=== PATIENT | male | born 1965 | race Caucasian/White ===

== ENCOUNTER 2018-04-16 16:46 | Emergency (ER) | payer BC ==
[2018-04-16 17:07] VITALS: BP 156/101
[2018-04-16] MEDS ORDERED: HYDROmorphone 1 MG/ML Syringe IVPUSH STA (17:58)
[2018-04-16] MEDS ORDERED: Ondansetron 4 MG/2 ML SDV IVPUSH ONE (17:58)
--- NOTE | 2018-04-16 18:11 | EDM.PDOC ---
ED HPI GENERAL MEDICAL PROBLEM - General Chief Complaint: Abdominal Pain Stated Complaint: LOWER ABDOMINAL PAIN Time Seen by Provider: 04/16/18 17:16 Source of Information: Reports: Patient, RN Notes Reviewed History Limitations: Reports: No Limitations - History of Present Illness INITIAL COMMENTS - FREE TEXT/NARRATIVE: Patient is a 53 year old male who presents to the ED for the evaluation of sudden onset lower abdominal pain. He states that this started suddenly around 2 hours ago. This located in his lower abdomen, bilaterally. He notes this to feel as if "it is a big gas bubble that won't go away". He states that he has had 4 episodes of diarrhea today, with the last one just prior to arrival, and it looked like coffee grounds with some blood in it. He denies any previous history of intestinal issues like IBS or diverticulosis. He does note that he is on prilosec for GERD, and is supposed to be evaluated for enlarged prostate by urology tomorrow, he also says that he does have hemorrhoids. He denies eating any red-colored foods that may have caused a red color to his stools. He rates his pain at a 9/10. His PCP is Dr. Morataya. Lower Abdominal Pain Score (Numeric/FACES): 9 - Related Data Allergies Allergy/AdvReac Type Severity Reaction Status Date / Time No Known Allergies Allergy Verified 04/16/18 17:07 Home Meds: Home Meds Desvenlafaxine [Pristiq] 1 tab PO DAILY 01/12/16 [History] Valsartan/Hydrochlorothiazide [Valsartan-Hctz 160-12.5 mg Tab] 1 tab PO DAILY [History] Aspirin 325 mg PO BID #60 tablet 01/14/16 [Rx] Ranitidine HCl [Zantac 75] 75 mg PO DAILY 02/13/16 [History] Clindamycin Hcl [IJP: Clindamycin] 450 mg PO .EVERY 8 HOURS #90 cap 02/14/16 [Rx ] Amoxicillin/Potassium Clav [Augmentin 875-125 Tablet] 1 each PO BID #13 tablet 04/16/18 [Rx] Hydrocodone/Acetaminophen [Hermosa 10-325 Tablet] 1 each PO Q6HR PRN #20 tablet [Rx] Past Medical History HEENT History: Reports: Sinusitis, Other (See Below) Other HEENT History: has hearing aids and glasses (doesn't wear) Cardiovascular History: Reports: Hypertension Respiratory History: Reports: Asthma Other Respiratory History: Severe Snoring Gastrointestinal History: Reports: GERD Genitourinary History: Reports: Prostate Disorder Musculoskeletal History: Reports: Arthritis, Back Pain, Chronic, Osteoarthritis , RA, Other (See Below) Other Musculoskeletal History: fracture hand - chronic neck pain Neurological History: Reports: None Psychiatric History: Reports: Anxiety Endocrine/Metabolic History: Reports: None - Past Surgical History HEENT Surgical History: Reports: Other (See Below) Musculoskeletal Surgical History: Reports: Shoulder Replacement, Shoulder Surgery, Other (See Below) Other Musculoskeletal Surgeries/Procedures:: 7 shoulder surgeries, ankle surgery with pins placed Social & Family History - Family History Family Medical History: Noncontributory - Tobacco Use Smoking Status *Q: Current Every Day Smoker Years of Tobacco use: 40 Packs/Tins Daily: 0.5 - Caffeine Use Caffeine Use: Reports: Coffee - Recreational Drug Use Recreational Drug Use: No ED ROS GENERAL - Review of Systems Review Of Systems: See Below Constitutional: Denies: Fever, Chills HEENT: Reports: No Symptoms Respiratory: Reports: No Symptoms Cardiovascular: Reports: No Symptoms Endocrine: Reports: No Symptoms GI/Abdominal: Reports: Abdominal Pain (lower abdominal pain), Diarrhea. Denies : Nausea, Vomiting Musculoskeletal: Reports: No Symptoms Skin: Reports: No Symptoms Neurological: Reports: No Symptoms Psychiatric: Reports: No Symptoms Hematologic/Lymphatic: Reports: No Symptoms Immunologic: Reports: No Symptoms ED EXAM, GI/ABD - Physical Exam Exam: See Below Exam Limited By: No Limitations General Appearance: Alert, WD/WN, No Apparent Distress Eyes: Bilateral: Normal Appearance Ears: Normal External Exam, Normal Canal, Hearing Grossly Normal, Normal TMs Nose: Normal Inspection Throat/Mouth: Normal Inspection, Normal Oropharynx, No Airway Compromise Head: Atraumatic, Normocephalic Neck: Normal Inspection, Supple, Non-Tender, Full Range of Motion Respiratory/Chest: No Respiratory Distress, Lungs Clear, Normal Breath Sounds, No Accessory Muscle Use, Chest Non-Tender Cardiovascular: Normal Peripheral Pulses, Regular Rate, Rhythm, No Edema, No Murmur GI/Abdominal Exam: Normal Bowel Sounds, Soft, No Distention, No Mass, Tender ( RLQ and LLQ). No: Guarding, Rigid, Rebound Back Exam: Normal Inspection, Full Range of Motion Extremities: Normal Inspection, Normal Capillary Refill Neurological: Alert, Oriented, Normal Cognition, No Motor/Sensory Deficits Psychiatric: Normal Affect, Normal Mood Skin Exam: Warm, Dry, Intact, Normal Color, No Rash Course - Vital Signs Last Recorded V/S: Last Vital Signs Temp 98.3 F 04/16/18 17:04 Pulse 68 04/16/18 17:04 Resp 18 04/16/18 17:04 BP 156/101 H 04/16/18 17:04 Pulse Ox 99 04/16/18 17:04 - Orders/Labs/Meds Orders: Active Orders 24 hr Category Date Time Status Abdomen Pelvis w Cont [CT] Stat Exams 04/16/18 17:58 Ordered Sodium Chloride 0.9% [Normal Saline] 1,000 ml Med 04/16/18 18:00 Ordered IV ASDIRECTED Medication Orders Sodium Chloride (Normal Saline) 1,000 mls @ 999 mls/hr IV ASDIRECTED KEVIN Last Admin: 04/16/18 18:16 Dose: 999 mls/hr Labs: Laboratory Tests 04/16/18 04/16/18 04/16/18 Range/Units 18:10 18:10 19:35 WBC 12.69 H (4.23-9.07) K/mm3 RBC 4.68 (4.63-6.08) M/mm3 Hgb 15.1 (13.7-17.5) gm/L Hct 43.2 (40.1-51.0) % MCV 92.3 H (79.0-92.2) fl MCH 32.3 H (25.7-32.2) pg MCHC 35.0 (32.2-35.5) g/dl RDW Std Deviation 42.4 (35.1-43.9) fL Plt Count 312 (163-337) K/mm3 MPV 10.3 (9.4-12.3) fl Neutrophils % (Manual) 76 H (40-60) % Band Neutrophils % 0 (0-10) % Lymphocytes % (Manual) 18 L (20-40) % Atypical Lymphs % 0 % Monocytes % (Manual) 3 (2-10) % Eosinophils % (Manual) 3 (0.8-7.0) % Basophils % (Manual) 0 L (0.2-1.2) Platelet Estimate Adequate RBC Morph Comment Normal Sodium 141 (136-145) mEq/L Potassium 4.1 (3.5-5.1) mEq/L Chloride 106 (98-107) mEq/L Carbon Dioxide 24 (21-32) mEq/L Anion Gap 15.1 H (5-15) BUN 13 (7-18) mg/dL Creatinine 0.9 (0.7-1.3) mg/dL Est Cr Clr Drug Dosing 98.01 mL/min Estimated GFR (MDRD) > 60 (>60) mL/min BUN/Creatinine Ratio 14.4 (14-18) Glucose 104 (74-106) mg/dL Calcium 8.9 (8.5-10.1) mg/dL Total Bilirubin 0.3 (0.2-1.0) mg/dL AST 21 (15-37) U/L ALT 40 (16-63) U/L Alkaline Phosphatase 109 (46-116) U/L Total Protein 7.0 (6.4-8.2) g/dl Albumin 3.7 (3.4-5.0) g/dl Globulin 3.3 gm/dL Albumin/Globulin Ratio 1.1 (1-2) Urine Color Yellow (Yellow) Urine Appearance Clear (Clear) Urine pH 6.0 (5.0-8.0) Ur Specific [place] 1.025 (1.005-1.030) Urine Protein Negative (Negative) Urine Glucose (UA) Negative (Negative) Urine Ketones Negative (Negative) Urine Occult Blood Negative (Negative) Urine Nitrite Negative (Negative) Urine Bilirubin Negative (Negative) Urine Urobilinogen 0.2 (0.2-1.0) Ur Leukocyte Esterase Negative (Negative) Urine RBC 0-5 (0-5) /hpf Urine WBC 0-5 (0-5) /hpf Ur Epithelial Cells Not seen (0-5) /hpf Urine Bacteria Few (FEW) /hpf Urine Mucus Moderate H (FEW) /hpf Meds: Medications Generic Name Dose Route Start Last Admin Trade Name Freq PRN Reason Stop Dose Admin Sodium Chloride 1,000 mls @ 999 mls/hr 04/16/18 18:00 04/16/18 20:34 Normal Saline IV 999 mls/hr ASDIRECTED KEVIN Administration Discontinued Medications Generic Name Dose Route Start Last Admin Trade Name Freq PRN Reason Stop Dose Admin Amoxicillin/Clavulanate Potassium 1 tab 01/08/19 20:30 04/16/18 20:38 Augmentin 875 Mg/125 Mg PO 04/16/18 20:31 1 tab ONETIME ONE Administration Diatrizoate Meglum/Diatrizoate Sod 60 ml 04/16/18 18:24 04/16/18 20:03 Gastrografin 37% PO 04/16/18 18:25 60 ml ONETIME ONE Administration Hydromorphone HCl 0.5 mg 04/16/18 17:58 04/16/18 18:18 Dilaudid IVPUSH 04/16/18 17:59 0.5 mg ONETIME STA Administration Hydromorphone HCl Confirm 04/16/18 20:23 04/16/18 20:28 Dilaudid Administered 04/16/18 20:24 Not Given Dose 1 mg .ROUTE .STK-MED ONE Hydromorphone HCl 0.5 mg 04/16/18 20:27 04/16/18 20:28 Dilaudid IVPUSH 04/16/18 20:28 0.5 mg ONETIME STA Administration Hydromorphone HCl 0.5 mg 04/16/18 20:29 04/16/18 20:39 Dilaudid IVPUSH 04/16/18 20:30 Not Given ONETIME ONE Iopamidol 100 ml 04/16/18 18:25 04/16/18 20:02 Isovue-300 (61%) IVPUSH 04/16/18 18:26 100 ml ONETIME ONE Administration Ondansetron HCl 4 mg 04/16/18 17:58 04/16/18 18:17 Zofran IVPUSH 04/16/18 17:59 4 mg ONETIME ONE Administration - Radiology Interpretation Free Text/Narrative:: CT abdomen and pelvis Technique: Multiple axial sections were obtained from above the dome of the diaphragm inferiorly through the pubic symphysis. Intravenous and oral contrast was utilized. Delayed images were obtained through the bladder. Findings: Small portion of the visualized lung bases shows nothing acute. Liver shows mild fatty infiltration. Slight area of increased density noted within the right lobe extending close to the gallbladder fossa most likely due to focal fatty sparing. Liver is otherwise unremarkable in appearance. Gallbladder contains no calcified gallstones. Spleen appears without abnormality. Adrenal glands show no nodule. Pancreas is within normal limits. Aorta shows no aneurysm with mild atherosclerotic calcification. Appendix is seen which is normal in size. No retroperitoneal adenopathy is seen. No mesenteric abnormalities are seen. Diverticuli are seen mostly within the sigmoid colon with mild muscular prominence being seen within the sigmoid colon. There is a small area of focal increased density adjacent to a diverticulum within the fat of the pelvis presumably due to early diverticulitis. No additional pelvic abnormality is seen. No free fluid is identified. No bowel abnormality is appreciated. Impression: 1. Slight inflammatory change adjacent to a diverticuli within the sigmoid colon which is felt compatible with early diverticulitis. 2. Fatty infiltration within the liver with focal area fatty sparing as noted above. 3. No additional abnormality is appreciated on CT study of the abdomen and pelvis. - Re-Assessments/Exams Free Text/Narrative Re-Assessment/Exam: 04/16/18 18:00 Pt presents to ED for the evaluation of sudden onset lower abdominal pain. Abdomen pelvis CT w contrast, CBC, CMP, UA, 0.5mg iv dilaudid, 4mg iv zofran and an IV fluid bolus has been ordered for initial management. 04/16/18 20:59 Labs are back and his white count is slightly elevated and CT demonstrates early diverticulitis. Results were discussed at bedside, will be given another dose of 0.5mg dilaudid for pain relief, and a dose of augmentin in ED. He will be provided with norco 10-325 for pain relief and augmentin script for home use. Departure - Departure Time of Disposition: 21:02 Disposition: Home, Self-Care 01 Condition: Fair Clinical Impression: Diverticulitis - Discharge Information *PRESCRIPTION DRUG MONITORING PROGRAM REVIEWED*: No *COPY OF PRESCRIPTION DRUG MONITORING REPORT IN PATIENT MARE: No Prescriptions: Hydrocodone/Acetaminophen [Hermosa 10-325 Tablet] 1 each PO Q6HR PRN #20 tablet PRN Reason: Pain Amoxicillin/Potassium Clav [Augmentin 875-125 Tablet] 1 each PO BID #13 tablet Instructions: Diverticulitis, [id number] Referrals: Cameron Pascual MD [Primary Care Provider] - Forms: ED Department Discharge Additional Instructions: You have been evaluated in the ED for your lower abdominal pain. Your CT demonstrated that you have diverticulitis. You have been provided with a script for pain meds and antibiotics. Please take these as directed. Please start taking a probiotic to help prevent diarrhea from antibiotic prescribed. Please return to ED if your symptoms change or worsen. - My Orders Last 24 Hours: My Active Orders 04/16/18 17:58 Abdomen Pelvis w Cont [CT] Stat 04/16/18 18:00 Sodium Chloride 0.9% [Normal Saline] 1,000 ml IV ASDIRECTED - Assessment/Plan Last 24 Hours: My Active Orders 04/16/18 17:58 Abdomen Pelvis w Cont [CT] Stat 04/16/18 18:00 Sodium Chloride 0.9% [Normal Saline] 1,000 ml IV ASDIRECTED
[2018-04-16] MEDS: Sodium Chloride 0.9% 1,000 ML IV SCH ×2 (18:16→20:34)
[2018-04-16] MEDS ORDERED: Diatrizoate Meglumine/Diatrizoate Sodium 37% 120 ML Bottle PO ONE (18:24)
[2018-04-16] MEDS ORDERED: Iopamidol 612 MG/ML 100 ML Bottle IVPUSH ONE (18:25)
[2018-04-16] MEDS ORDERED: HYDROmorphone 1 MG/ML Syringe ONE (20:23)
[2018-04-16] MEDS ORDERED: HYDROmorphone 0.5 MG/0.5 ML Syringe IVPUSH STA (20:27)
[2018-04-16] MEDS ORDERED: HYDROmorphone 1 MG/ML Syringe IVPUSH ONE (20:29)
[2018-04-16] MEDS ORDERED: Amoxicillin/Clavulanate K 875-125 MG Tab PO ONE (20:30)
--- NOTE | 2018-04-16 22:09 | CT ---
CT abdomen and pelvis Technique: Multiple axial sections were obtained from above the dome of the diaphragm inferiorly through the pubic symphysis. Intravenous and oral contrast was utilized. Delayed images were obtained through the bladder. Findings: Small portion of the visualized lung bases shows nothing acute. Liver shows mild fatty infiltration. Slight area of increased density noted within the right lobe extending close to the gallbladder fossa most likely due to focal fatty sparing. Liver is otherwise unremarkable in appearance. Gallbladder contains no calcified gallstones. Spleen appears without abnormality. Adrenal glands show no nodule. Pancreas is within normal limits. Aorta shows no aneurysm with mild atherosclerotic calcification. Appendix is seen which is normal in size. No retroperitoneal adenopathy is seen. No mesenteric abnormalities are seen. Diverticuli are seen mostly within the sigmoid colon with mild muscular prominence being seen within the sigmoid colon. There is a small area of focal increased density adjacent to a diverticulum within the fat of the pelvis presumably due to early diverticulitis. No additional pelvic abnormality is seen. No free fluid is identified. No bowel abnormality is appreciated. Impression: 1. Slight inflammatory change adjacent to a diverticuli within the sigmoid colon which is felt compatible with early diverticulitis. 2. Fatty infiltration within the liver with focal area fatty sparing as noted above. 3. No additional abnormality is appreciated on CT study of the abdomen and pelvis. Diagnostic code #3
== END 2018-04-16 21:48 | disposition home or self-care (01) ==
LOC: JD.ED 16:46
DX: K57.32 Diverticulitis of large intestine without perforation or abscess without bleeding (principal); F17.210 Nicotine dependence, cigarettes, uncomplicated; I10 Essential (primary) hypertension; Z79.899 Other long term (current) drug therapy
CPT/HCPCS: 36415; 74177; 80053; 81001; 85007; 85027; 96361; 96374; 96375; 96376; 99284; A9270; J1170; J2405; J7040; Q9963; Q9967

== ENCOUNTER 2018-08-05 17:47 | Inpatient (IN) | payer BC ==
[2018-08-05] MEDS ORDERED: Sodium Chloride 0.9% 1,000 ML IV ONE (18:33)
[2018-08-05] MEDS ORDERED: Ondansetron 4 MG/2 ML SDV IVPUSH ONE (18:34)
[2018-08-05] MEDS ORDERED: HYDROmorphone 1 MG/ML Syringe IVPUSH ONE (18:34)
[2018-08-05] MEDS ORDERED: cefTRIAXone 2 GM in Sodium Chloride 0.9% 100 ML IV ONE (18:40)
[2018-08-05] MEDS ORDERED: metroNIDAZOLE/Normal Saline 500 MG in Premix Bag 1 BAG IV SCH (18:45)
[2018-08-05] MEDS ORDERED: cefTRIAXone 2 GM Vial IVPUSH SCH (18:45)
--- NOTE | 2018-08-05 19:07 | EDM.PDOC ---
ED HPI GENERAL MEDICAL PROBLEM - General Chief Complaint: Abdominal Pain Stated Complaint: SENT BY [facility] Time Seen by Provider: 08/05/18 18:00 Source of Information: Reports: Patient, Old Records, Provider History Limitations: Reports: No Limitations - History of Present Illness INITIAL COMMENTS - FREE TEXT/NARRATIVE: 53 yo M h/o HTN, GERD, BPH, Depression, Asthma sent by [facility] d/t Diverticulitis w/ abscess found on abdominal CT. Report was called over, reported increased WBC 15.1 and CRP 34.[address] CT results, still awaiting records. Pt c/o abdominal pain started about 2 weeks ago and has been getting worse with associated nausea. He describes the pain as severe cramping in the lower abdomen and he states it "feels full". He has been unable to have a BM for 6 days, has not eaten today (last meal was last night, only ate part of it). This is his third episode of diverticulitis within the last year (first episode 1 year ago, 2nd episode 4 months ago). He is a 1/2ppd smoker x 34 years. PCP is Natasha Grey APRN-MANSI. He is a DNR/DNI. Bilateral Lower Abdominal Pain Score (Numeric/FACES): 8 - Related Data Allergies Allergy/AdvReac Type Severity Reaction Status Date / Time [id number]-Gls Reductase Allergy Disorientat Verified 08/05/18 17:54 Inhibitor ion Home Meds: Home Meds Desvenlafaxine [Pristiq] 50 mg PO DAILY 01/12/16 [History] Valsartan/Hydrochlorothiazide [Valsartan-Hctz 160-12.5 mg Tab] 12.5 - 40 mg PO DAILY 01/12/16 [History] Albuterol [Ventolin HFA] 1 puff INH Q4H PRN 08/05/18 [History] Clindamycin Hcl [IJP: Clindamycin] 600 mg PO .EVERY 8 HOURS 08/05/18 [History] Desvenlafaxine Succinate [Pristiq] 50 mg PO DAILY 08/05/18 [History] Ezetimibe [Zetia] 10 mg PO DAILY 08/05/18 [History] Omeprazole Magnesium [Prilosec Otc] 10 mg PO DAILY 08/05/18 [History] Tamsulosin [Flomax] 0.4 mg PO DAILY 08/05/18 [History] Past Medical History HEENT History: Reports: Sinusitis, Other (See Below) Other HEENT History: has hearing aids and glasses (doesn't wear) Cardiovascular History: Reports: Hypertension Respiratory History: Reports: Asthma Other Respiratory History: Severe Snoring Gastrointestinal History: Reports: GERD Genitourinary History: Reports: Prostate Disorder Musculoskeletal History: Reports: Arthritis, Back Pain, Chronic, Osteoarthritis , RA, Other (See Below) Other Musculoskeletal History: fracture hand - chronic neck pain Neurological History: Reports: None Psychiatric History: Reports: Anxiety Endocrine/Metabolic History: Reports: None - Past Surgical History HEENT Surgical History: Reports: Other (See Below) Musculoskeletal Surgical History: Reports: Shoulder Replacement, Shoulder Surgery, Other (See Below) Other Musculoskeletal Surgeries/Procedures:: 7 shoulder surgeries, ankle surgery with pins placed Social & Family History - Family History Family Medical History: Noncontributory - Tobacco Use Smoking Status *Q: Current Every Day Smoker Years of Tobacco use: 38 Packs/Tins Daily: 0.5 - Caffeine Use Caffeine Use: Reports: Coffee - Recreational Drug Use Recreational Drug Use: No ED ROS GENERAL - Review of Systems Review Of Systems: See Below Constitutional: Reports: No Symptoms. Denies: Fever, Chills, Decreased Appetite HEENT: Reports: No Symptoms Respiratory: Reports: No Symptoms Cardiovascular: Reports: No Symptoms Endocrine: Reports: No Symptoms GI/Abdominal: Reports: Abdominal Pain (lower quadrants), Constipation (hasn't had BM in 6 days), Nausea. Denies: Diarrhea, Vomiting : Reports: No Symptoms Musculoskeletal: Reports: No Symptoms Skin: Reports: No Symptoms Neurological: Reports: No Symptoms Psychiatric: Reports: No Symptoms ED EXAM, GI/ABD - Physical Exam Exam: See Below Exam Limited By: No Limitations General Appearance: Alert, WD/WN, Mild Distress Eyes: Bilateral: Normal Appearance, EOMI Ears: Normal External Exam, Hearing Grossly Normal Nose: Normal Inspection, Normal Mucosa, No Blood Respiratory/Chest: No Respiratory Distress, Lungs Clear, Normal Breath Sounds, No Accessory Muscle Use, Chest Non-Tender Cardiovascular: Normal Peripheral Pulses, Regular Rate, Rhythm, No Edema, No Gallop, No JVD, No Murmur, No Rub GI/Abdominal Exam: Soft, No Organomegaly, No Abnormal Bruit, No Mass, Pelvis Stable, Distended (mild), Tender (lower quadrants), Abnormal Bowel Sounds ( hyperactive) Neurological: Alert, Oriented, CN II-XII Intact, Normal Cognition, Normal Gait, Normal Reflexes, No Motor/Sensory Deficits Psychiatric: Normal Affect, Normal Mood Skin Exam: Warm, Dry, Intact, Normal Color, No Rash Course - Vital Signs Last Recorded V/S: Last Vital Signs Temp 96.7 F 08/05/18 17:55 Pulse 83 08/05/18 17:55 Resp 16 08/05/18 17:55 BP 152/99 H 08/05/18 17:55 Pulse Ox 100 08/05/18 17:55 - Orders/Labs/Meds Orders: Active Orders 24 hr Category Date Time Status CULTURE BLOOD [BC] Stat Lab 08/05/18 19:39 Received CULTURE BLOOD [BC] Stat Lab 08/05/18 19:45 Received metroNIDAZOLE/Normal Saline [Flagyl 500 MG in NS 100 ML Med 08/05/18 18:45 Active ] 500 mg Premix Bag 1 bag IV Q8H Blood Culture x2 Reflex Set [OM.PC] Stat Oth 08/05/18 19:22 Ordered Medication Orders Metronidazole 500 mg/ Premix 100 mls @ 100 mls/hr IV Q8H KEVIN Last Admin: 08/05/18 19:37 Dose: 100 mls/hr Labs: Laboratory Tests 08/05/18 Range/Units 19:39 Lactic Acid 0.8 (0.4-2.0) mmol/L Meds: Medications Generic Name Dose Route Start Last Admin Trade Name Freq PRN Reason Stop Dose Admin Metronidazole 500 mg/ Premix 100 mls @ 100 mls/hr 08/05/18 18:45 08/05/18 19: 37 IV 100 mls/hr Q8H KEVIN Administration Discontinued Medications Generic Name Dose Route Start Last Admin Trade Name Freq PRN Reason Stop Dose Admin Hydromorphone HCl 0.5 mg 08/05/18 18:34 08/05/18 19:01 Dilaudid IVPUSH 08/05/18 18:35 0.5 mg ONETIME ONE Administration Hydromorphone HCl 0.5 mg 08/05/18 21:30 08/05/18 21:34 Dilaudid IVPUSH 08/05/18 21:31 0.5 mg ONETIME ONE Administration Sodium Chloride 1,000 mls @ 999 mls/hr 08/05/18 18:33 08/05/18 19:01 Normal Saline IV 08/05/18 19:33 999 mls/hr ONETIME ONE Administration Ceftriaxone Sodium 2 gm/ 100 mls @ 200 mls/hr 08/05/18 18:40 08/05/18 19:01 Sodium Chloride IV 08/05/18 19:09 200 mls/hr ONETIME ONE Administration Ondansetron HCl 4 mg 08/05/18 18:34 08/05/18 19:01 Zofran IVPUSH 08/05/18 18:35 4 mg ONETIME ONE Administration - Re-Assessments/Exams Free Text/Narrative Re-Assessment/Exam: 08/05/18 18:35 Ordered Metronidazole 500mg, Rocephin 2g Zofran 4mg, Dilaudid 0.5mg 1L bolus IV NS Still awaiting labs and CT report from [facility]. 08/05/18 19:00 Discussed case with on-call surgeon Dr. Aguayo. He reviewed the CT and consulted in the ED. He states that the abscess is not large enough to warrant surgery, but he should be admitted for IV antibiotic treatment as he is symptomatic, has elevated WBC (15.1) and there is a presence of an abscess. He states that he may need a sigmoid colectomy if he has had this over 2 times with being over 50 years old- this is is 3rd episode in the past year. Dr. Aguayo states he cannot perform that surgery here. [place] labs are back: CBC shows WBC 15.1, Seg neut absolute 11.3, Neut 74.9%, Lymph 17.6%, [place] 6.9%-- > infection with left shift CMP shows Glu 109 CRP 34.6 U/A negative for UTI Will add Lactic Acid and Blood Cultures CT report from [place]: Acute sigmoid diverticulitis w/ peridiverticular abscess superiorly measuring [id number]. 08/05/18 19:[address] Will discuss [address] Coffman to see if he'd like to admit for IV antibiotic treatment and have him follow up for sigmoid colectomy outpt. At this time, with this being his third episode in the past year, Dr. Coffman is not comfortable taking this patient and would like him to go where the surgery can be done. He is fine with being back up in case he can't get transferred. Will call [facility] next. 08/05/18 19:59 Called [facility]. They are unsure if they have any available beds. Will call me back. 08/05/18 20:05 [facility] called back. They are full. Will try [facility]. 08/05/18 20:18 [facility] busy, will call me back. 08/05/18 20:22 [facility] called me back. Discussed case with general surgeon Dr. Lorena Gooden. She has accepted the patient for inpatient treatment. She states he will likely need an IR drain vs. surgery. 08/05/18 20:43 Dr. Gooden has called back after reviewing the CT. She does not feel he needs surgical intervention and would like to cancel the admission/transfer as she will be giving the same treatment as he would get here. 08/05/18 20:47 Dr. Coffman advised of the canceled transfer. He will come see the patient. 08/05/18 21:30 Dr. Coffman is willing to accept the patient at this time. He would like him started on Flagyl and Levaquin. Pt is confused about whether he should go to [place]. After talking with him, he is willing to stay here to get IV antibiotic treatment and f/u with surgery in [place] as outpatient. Departure - Departure Time of Disposition: 21:41 Disposition: Admitted As Inpatient 66 Condition: Fair Clinical Impression: Abscess of sigmoid colon due to diverticulitis - Discharge Information *PRESCRIPTION DRUG MONITORING PROGRAM REVIEWED*: Not Applicable *COPY OF PRESCRIPTION DRUG MONITORING REPORT IN PATIENT MARE: Not Applicable Referrals: Natasha Linares MD [Primary Care Provider] - Forms: ED Department Discharge - My Orders Last 24 Hours: My Active Orders 08/05/18 18:45 metroNIDAZOLE/Normal Saline [Flagyl 500 MG in NS 100 ML] 500 mg Premix Bag 1 bag IV Q8H 08/05/18 19:22 Blood Culture x2 Reflex Set [OM.PC] Stat 08/05/18 19:39 CULTURE BLOOD [BC] Stat 08/05/18 19:45 CULTURE BLOOD [BC] Stat - Assessment/Plan Last 24 Hours: My Active Orders 08/05/18 18:45 metroNIDAZOLE/Normal Saline [Flagyl 500 MG in NS 100 ML] 500 mg Premix Bag 1 bag IV Q8H 08/05/18 19:22 Blood Culture x2 Reflex Set [OM.PC] Stat 08/05/18 19:39 CULTURE BLOOD [BC] Stat 08/05/18 19:45 CULTURE BLOOD [BC] Stat
[2018-08-05] MEDS ORDERED: HYDROmorphone 0.5 MG/0.5 ML Syringe IVPUSH ONE (21:30)
[2018-08-05] MEDS ORDERED: hydrALAZINE 20 MG/ML SDV IVPUSH PRN (22:54)
[2018-08-05] MEDS ORDERED: Metoprolol Tartrate 5 MG/5 ML SDV IVPUSH PRN (22:54)
[2018-08-05] MEDS ORDERED: LORazepam 2 MG/ML SDV IV PRN (22:55)
[2018-08-05] MEDS ORDERED: Ondansetron 4 MG/2 ML SDV IV PRN (22:55)
[2018-08-05] MEDS ORDERED: HYDROmorphone 1 MG/ML Syringe IVPUSH PRN (22:55)
[2018-08-05] MEDS ORDERED: Acetaminophen 325 MG Tab PO PRN (22:55)
[2018-08-05] MEDS ORDERED: Albuterol/Ipratropium 3.0-0.5 MG/3 ML Neb Soln NEB PRN (22:55)
[2018-08-05] MEDS ORDERED: oxyCODONE ER 10 MG TAB.ER PO ONE (22:59)
[2018-08-05] MEDS ORDERED: Albuterol 6.7 GM Inhaler INH PRN (23:08)
[2018-08-05] MEDS: Levofloxacin/Dextrose 5%-Water 500 MG in Premix Bag 1 BAG IV SCH (23:56)
[2018-08-06] MEDS ORDERED: Nicotine 21 MG/24 Hr Patch TRDERM ONE (00:30)
[2018-08-06] MEDS: metroNIDAZOLE/Normal Saline 500 MG in Premix Bag 1 BAG IV SCH ×3 (01:22→17:58)
--- NOTE | 2018-08-06 06:30 | PCM.HP ---
H&P History of Present Illness - General Date of Service: 08/06/18 Admit Problem/Dx: Admission Diagnosis/Problem Admission Diagnosis/Problem Abscess of sigmoid colon due to diverticulitis Source of Information: Patient, Old Records, Provider, RN, RN Notes Reviewed History Limitations: Reports: No Limitations - History of Present Illness Initial Comments - Free Text/Narative: Samuel White is a 53 yo male who presented to our ED on 08/05/18 after being seen at the [facility] for diverticulitis with abscess formation found on abdominal CT. He was reported to have a white count of 15.1 and a CRP of 34.6.reports pain started about 2 weeks prior at the getting worse associated with nausea. Reports pain is severe cramping sensation in his lower abdomen and that it "feels full". He's not had BM for 6 days and had yet to eatthat day. He's had 2 prior episodes of diverticulitis with his first episode being about a year ago and the second episode about 4 months ago. In the ED temp was 96.7 Fahrenheit. Pulse was 83. Respirations 16. Blood pressure 152/99. Pulse ox 100%. Blood cultures were obtained and lactic acid was drawn and found to be 0.8. Plantar milligram Flagyl was started. [place] labs are obtained and show a WBC of 15.1 segmented neutrophils absolute of 11.3 , neutrophils of 74.9%, lymphocytes of 17.6%, monocytes of 6.9%, and infection with a left shift. CMP shows a glucose of 109. CRP is 34.6. UA is negative for UTI. CT report from [place] shows acute sigmoid diverticulitis with peridiverticular abscess superiorly measuring 33 x 26 mm. call taker surgeon, Dr. Aguayo is contacted by the ED provider and reports that abscess is not largest wart surgery but he should be admitted for IV antibiotic treatment as he is symptomatic. Reports he may need sigmoid colectomy if he has had this over 2 times and being a 50-year-old. Dr. Aguayo reports he cannot perform the surgery here. original plan was for transfer however after ED provider discussed case with on-call [facility] surgeon, Dr. Gooden, she reports that she does not feel that he will need surgical intervention. She does not feel a transfer would be warranted as she will be providing the exact same care there. After some discussion the patient was willing to stay here for IV antibiotics knowing that he will likely need to follow-up with surgery in [place] as an outpatient. he carries a history of hypertension, asthma, GERD, prostate disorder, arthritis , chronic back pain, osteoporosis, RA, anxiety. He is a current every day smoker. His PCP is Natasha Turpin NP. Bilateral Lower Abdominal Pain Score (Numeric/FACES): 8 - Related Data Allergies/Adverse Reactions: Allergies Allergy/AdvReac Type Severity Reaction Status Date / Time [id number] Reductase Allergy Disorientat Verified 08/05/18 17:54 Inhibitor ion Home Medications: Home Meds Valsartan/Hydrochlorothiazide [Valsartan-Hctz 160-12.5 mg Tab] 1 tab PO DAILY [History] Amoxicillin/Clavulanate K [Augmentin 875-125 MG] 1 tab PO BID #14 tablet [Rx] Desvenlafaxine Succinate [Pristiq] 25 mg PO DAILY 06/04/18 [History] Omeprazole Magnesium [Prilosec Otc] 20 mg PO DAILY 06/04/18 [History] Valsartan 30 mg PO DAILY 06/04/18 [History] Albuterol [Ventolin HFA] 1 puff INH Q4H PRN 08/05/18 [History] Desvenlafaxine Succinate [Pristiq] 50 mg PO DAILY 08/05/18 [History] Omeprazole Magnesium [Prilosec Otc] 10 mg PO DAILY 08/05/18 [History] Tamsulosin [Flomax] 0.4 mg PO DAILY 08/05/18 [History] Past Medical History HEENT History: Reports: Hard of Hearing, Sinusitis, Other (See Below) Other HEENT History: has hearing aids and glasses (doesn't always wear) Cardiovascular History: Reports: Hypertension Respiratory History: Reports: Asthma Other Respiratory History: Severe Snoring Gastrointestinal History: Reports: GERD Genitourinary History: Reports: Prostate Disorder Musculoskeletal History: Reports: Arthritis, Back Pain, Chronic, Osteoarthritis , RA, Other (See Below) Other Musculoskeletal History: fracture hand - chronic neck pain Neurological History: Reports: None Psychiatric History: Reports: Anxiety Endocrine/Metabolic History: Reports: None Dermatologic History: Reports: None - Past Surgical History Musculoskeletal Surgical History: Reports: Shoulder Replacement, Shoulder Surgery, Other (See Below) Other Musculoskeletal Surgeries/Procedures:: 7 shoulder surgeries, ankle surgery with pins placed Social & Family History - Family History Family Medical History: Noncontributory - Tobacco Use Smoking Status *Q: Current Every Day Smoker Years of Tobacco use: 38 Packs/Tins Daily: 0.5 - Caffeine Use Caffeine Use: Reports: Coffee - Recreational Drug Use Recreational Drug Use: No H&P Review of Systems - Review of Systems: Review Of Systems: See Below General: Reports: No Symptoms. Denies: Fever, Chills, Malaise, Weakness, Fatigue HEENT: Reports: No Symptoms. Denies: Headaches, Sore Throat Pulmonary: Reports: No Symptoms. Denies: Shortness of Breath, Wheezing, Pleuritic Chest Pain, Cough, Sputum Cardiovascular: Reports: No Symptoms. Denies: Chest Pain, Palpitations, Dyspnea on Exertion, Edema Gastrointestinal: Reports: Abdominal Pain (Lower quadrants ), Constipation. Denies: Diarrhea, Nausea, Vomiting Genitourinary: Reports: No Symptoms. Denies: Pain Musculoskeletal: Reports: No Symptoms Skin: Reports: No Symptoms. Denies: Cyanosis Psychiatric: Reports: No Symptoms. Denies: Confusion Neurological: Reports: No Symptoms Hematologic/Lymphatic: Reports: No Symptoms Exam - Exam Exam: See Below - Vital Signs Vital Signs: Last Vital Signs Temp 98.2 F 08/06/18 01:26 Pulse 60 08/06/18 01:26 Resp 18 08/06/18 01:26 BP 130/79 08/06/18 01:26 Pulse Ox 95 08/06/18 01:26 Weight: 203 lb 9.6 oz - Exam Quality Assessment: DVT Prophylaxis General: Alert, Oriented, Cooperative. No: Mild Distress HEENT: Conjunctiva Clear, EACs Clear, EOMI, Hearing Intact, Mucosa Moist & [place] , Normal Nasal Septum, Posterior Pharynx Clear, PERRLA Neck: Supple, Trachea Midline Lungs: Clear to Auscultation, Normal Respiratory Effort Cardiovascular: Regular Rate, Regular Rhythm GI/Abdominal Exam: Soft, No Organomegaly, Distended (very mild ), Tender (lower quadrants ), Abnormal Bowel Sounds (Male) Exam: Deferred Rectal (Males) Exam: Deferred Back Exam: Normal Inspection, Full Range of Motion Extremities: Normal Inspection, Normal Range of Motion, Non-Tender, No Pedal Edema, Normal Capillary Refill Peripheral Pulses: 2+: Radial (L), Radial (R), Dorsalis Pedis (L), Dorsalis Pedis (R) Skin: Warm, Dry, Intact Neurological: Cranial Nerves Intact (Grossly ) Neuro Extensive - Mental Status: Alert, Oriented x3, Normal Mood/Affect - Patient Data Lab Results Last 24 hrs: Laboratory Results - last 24 hr 08/05/18 Range/Units 19:39 Lactic Acid 0.8 (0.4-2.0) mmol/L Result Diagrams: 08/06/18 06:03 08/06/18 06:03 - Problem List (1) Abscess of sigmoid colon due to diverticulitis SNOMED Code(s): 0393639611683518 ICD Code: K57.20 - DVTRCLI OF LG INT W PERFORATION AND ABSCESS W/O BLEEDING Status: Acute Priority: High Current Visit: Yes (2) HTN (hypertension) SNOMED Code(s): 98562733 ICD Code: I10 - ESSENTIAL (PRIMARY) HYPERTENSION Status: Chronic Priority : Medium Current Visit: No (3) GERD (gastroesophageal reflux disease) SNOMED Code(s): 842714280 ICD Code: K21.9 - GASTRO-ESOPHAGEAL REFLUX DISEASE WITHOUT ESOPHAGITIS Status: Chronic Priority: Medium Current Visit: No Qualifiers: Esophagitis presence: esophagitis presence not specified Qualified Code(s) : K21.9 - Gastro-esophageal reflux disease without esophagitis (4) BPH (benign prostatic hyperplasia) SNOMED Code(s): 609619167 ICD Code: N40.0 - BENIGN PROSTATIC HYPERPLASIA WITHOUT LOWER URINRY TRACT SYMP Status: Chronic Priority: Low Current Visit: No Qualifiers: Lower urinary tract symptom presence: unspecified whether lower urinary tract symptoms present Qualified Code(s): N40.0 - Benign prostatic hyperplasia without lower urinary tract symptoms (5) Asthma SNOMED Code(s): 354289539 ICD Code: J45.909 - UNSPECIFIED ASTHMA, UNCOMPLICATED Status: Chronic Priority: Low Current Visit: No Qualifiers: Asthma severity: unspecified severity Asthma persistence: unspecified Asthma complication type: unspecified Qualified Code(s): J45.909 - Unspecified asthma, uncomplicated (6) Constipation SNOMED Code(s): 33956121 ICD Code: K59.00 - CONSTIPATION, UNSPECIFIED Status: Acute Priority: High Current Visit: Yes Qualifiers: Constipation type: unspecified constipation type Qualified Code(s): K59.00 - Constipation, unspecified Problem List Initiated/Reviewed/Updated: Yes Orders Last 24hrs: Active Orders 24 hr Category Date Time Status Admission Status [Patient Status] [ADT] Routine ADT 08/05/18 21:45 Active Antiembolic Devices [RC] DAILY Care 08/05/18 22:57 Active Height and Weight [RC] 04 Care 08/05/18 22:55 Active Intake and Output [RC] 04,16 Care 08/05/18 22:55 Active Oxygen Therapy [RC] PRN Care 08/05/18 22:55 Active RT Aerosol Therapy [RC] ASDIRECTED Care 08/05/18 22:57 Active Up ad Tamika [RC] ASDIRECTED Care 08/05/18 22:55 Active VTE/DVT Education [RC] DAILY Care 08/05/18 22:55 Active Vital Signs [RC] 03,09,15,21 Care 08/05/18 22:55 Active Consult to Case Management/Elementary Tutor [CONS] Cons 08/05/18 22:55 Active Routine Consult to Spiritual Care [CONS] Routine Cons 08/05/18 22:55 Active Clear Liquid Diet [DIET] Diet 08/05/18 Dinner Active BASIC METABOLIC PANEL,BMP [CHEM] AM Lab 08/06/18 06:03 Received BASIC METABOLIC PANEL,BMP [CHEM] AM Lab 08/07/18 05:11 Ordered BASIC METABOLIC PANEL,BMP [CHEM] AM Lab 08/08/18 05:11 Ordered BASIC METABOLIC PANEL,BMP [CHEM] AM Lab 08/09/18 05:11 Ordered C-REACTIVE PROTEIN [CHEM] AM Lab 08/06/18 06:03 Received C-REACTIVE PROTEIN [CHEM] AM Lab 08/07/18 05:11 Ordered C-REACTIVE PROTEIN [CHEM] AM Lab 08/08/18 05:11 Ordered C-REACTIVE PROTEIN [CHEM] AM Lab 08/09/18 05:11 Ordered CBC WITH AUTO DIFF [HEME] AM Lab 08/06/18 06:03 Received CBC WITH AUTO DIFF [HEME] AM Lab 08/07/18 05:11 Ordered CBC WITH AUTO DIFF [HEME] AM Lab 08/08/18 05:11 Ordered CBC WITH AUTO DIFF [HEME] AM Lab 08/09/18 05:11 Ordered CULTURE BLOOD [BC] Stat Lab 08/05/18 19:39 Received CULTURE BLOOD [BC] Stat Lab 08/05/18 19:45 Received MAGNESIUM [CHEM] AM Lab 08/06/18 06:03 Received MAGNESIUM [CHEM] AM Lab 08/07/18 05:11 Ordered MAGNESIUM [CHEM] AM Lab 08/08/18 05:11 Ordered MAGNESIUM [CHEM] AM Lab 08/09/18 05:11 Ordered Acetaminophen [Tylenol] Med 08/05/18 22:55 Active 650 mg PO Q4H PRN Albuterol [Proventil HFA] Med 08/05/18 23:08 Active 0 gm INH Q4H PRN Albuterol/Ipratropium [DuoNeb 3.0-0.5 MG/3 ML] Med 08/05/18 22:55 Active 3 ml NEB Q4H PRN Desvenlafaxine Succinate [Pristiq] Med 08/06/18 09:00 Pending 50 mg PO DAILY Ezetimibe [Zetia] Med 08/06/18 09:00 Active 10 mg PO DAILY HYDROmorphone [Dilaudid] Med 08/05/18 22:55 Active 0.5 mg IVPUSH Q2H PRN LORazepam [Ativan] Med 08/05/18 22:55 Active 1 mg IV Q6H PRN Levofloxacin/Dextrose 5%-Water [Levaquin in D5W 500 MG/ Med 08/05/18 22:00 Active 100 ML] 500 mg Premix Bag 1 bag IV Q24H Losartan [Cozaar] Med 08/06/18 09:00 Active 25 mg PO DAILY Metoprolol Tartrate [Lopressor] Med 08/05/18 22:54 Active 5 mg IVPUSH Q4H PRN Nicotine [Habitrol] Med 08/06/18 21:00 Active 21 mg TRDERM Q24H Ondansetron [Zofran] Med 08/05/18 22:55 Active 4 mg IV Q6H PRN Pantoprazole [ProTONIX] Med 08/06/18 07:00 Active 40 mg PO DAILY@0700 Pharmacy to Dose - Magnesium R [Pharmacy to Dose - Med 08/05/18 23:00 Pending Magnesium Replacement] 1 dose .XX ASDIRECTED Pharmacy to Dose - Potassium R [Pharmacy to Dose - Med 08/05/18 23:00 Pending Potassium Replacement] 1 dose .XX ASDIRECTED Saccharomyces Boulardii [Florastor] Med 08/06/18 09:00 Active 250 mg PO BID Sodium Chloride 0.9% [Normal Saline] 1,000 ml Med 08/05/18 23:00 Active IV ASDIRECTED Tamsulosin [Flomax] Med 08/06/18 09:00 Active 0.4 mg PO DAILY hydrALAZINE [Apresoline] Med 08/05/18 22:54 Active 20 mg IVPUSH Q4H PRN hydroCHLOROthiazide Med 08/06/18 09:00 Active 12.5 mg PO DAILY metroNIDAZOLE/Normal Saline [Flagyl 500 MG in NS 100 ML Med 08/06/18 02:00 Active ] 500 mg Premix Bag 1 bag IV Q8H oxyCODONE ER [OxyCONTIN] Med 08/06/18 09:00 Active 10 mg PO Q12HR Blood Culture x2 Reflex Set [OM.PC] Stat Oth 08/05/18 19:22 Ordered Sequential Compression Device [OM.PC] Per Unit Routine Oth 08/05/18 22:55 Ordered Code Status [Resuscitation Status] Stat Resus Stat 08/05/18 21:47 Ordered Medication Orders Acetaminophen (Tylenol) 650 mg PO Q4H PRN PRN Reason: Pain (Mild 1-3)/fever Albuterol (Proventil Hfa) 0 gm INH Q4H PRN PRN Reason: Wheezing Albuterol/Ipratropium (Duoneb 3.0-0.5 Mg/3 Ml) 3 ml NEB Q4H PRN PRN Reason: Shortness Of Breath/wheezing Ezetimibe (Zetia) 10 mg PO DAILY KEVIN Hydralazine HCl (Apresoline) 20 mg IVPUSH Q4H PRN PRN Reason: Hypertension Stop: 08/07/18 09:00 Hydrochlorothiazide (Hydrochlorothiazide) 12.5 mg PO DAILY KEVIN Hydromorphone HCl (Dilaudid) 0.5 mg IVPUSH Q2H PRN PRN Reason: Pain (severe 7-10) Levofloxacin/Dextrose 500 mg/ (Premix) 100 mls @ 100 mls/hr IV Q24H KEVIN Last Admin: 08/05/18 23:56 Dose: 100 mls/hr Metronidazole 500 mg/ Premix 100 mls @ 100 mls/hr IV Q8H [facility] Last Admin: 08/06/18 01:22 Dose: 100 mls/hr Sodium Chloride (Normal Saline) 1,000 mls @ 125 mls/hr IV ASDIRECTED [facility] Lorazepam (Ativan) 1 mg IV Q6H PRN PRN Reason: Anxiety Losartan Potassium (Cozaar) 25 mg PO DAILY [facility] Magnesium Sulfate (Pharmacy To Dose - Magnesium Replacement) 1 dose .XX ASDIRECTED [facility] Stop: 08/07/18 09:00 Metoprolol Tartrate (Lopressor) 5 mg IVPUSH Q4H PRN PRN Reason: Tachycardia Stop: 08/07/18 09:00 Nicotine (Habitrol) 21 mg TRDERM Q24H [facility] Non-Formulary Medication (Desvenlafaxine Succinate [Pristiq]) 50 mg PO DAILY [facility] Ondansetron HCl (Zofran) 4 mg IV Q6H PRN PRN Reason: Nausea/Vomiting Oxycodone HCl (Oxycontin) 10 mg PO Q12HR [facility] Stop: 08/07/18 09:00 Pantoprazole Sodium (Protonix) 40 mg PO DAILY@0700 [facility] Potassium Chloride (Pharmacy To Dose - Potassium Replacement) 1 dose .XX ASDIRECTED [facility] Stop: 08/07/18 09:00 Saccharomyces Boulardii (Florastor) 250 mg PO BID [facility] Tamsulosin HCl (Flomax) 0.4 mg PO DAILY [facility] Assessment/Plan Comment:: I/P: Acute: Diverticulitis of sigmoid colon with abscess -Reported to [facility] with 2 weeks of lower quadrant abdominal pain - severe cramping and "feels full" -Has not had BM for 6 days prior -CT scan at [facility] showed Acute sigmoid diverticulitis with peridiverticular abscess superiorly measuring [id number]. -Local surgeon, Dr. Aguayo consulted by ED and says patient will need IV abx and possible sigmoid colectomy, however he cannot perform that here -[facility] surgeon Dr. Gooden contacted and does not feel abscess is surgical at this time -WBC 15.1 ([facility])-->11.77 -CRP 34.6 ([facility])-->3.5 -Metronidazole 500mg Q8Hr -Levaquin 500mg Q24H -IV fluids as ordered -Clear liquid diet -Ambulate -Probiotic -Pain medications as ordered Constipation -Reports no BM in past 6 days -States he feels like he is constipated -Lactulose, Reglan and rectal suppository per Dr. Coffman -Clear liquid diet for now -Prune juice as requested -Feeling of fullness likely exacerbated by above Tobacco use disorder -0.5 PPD smoker for 38 years -Nicotine patch as ordered -Tobacco cessation counseling Chronic: HTN Asthma GERD BPH Arthritis Chronic back pain OA RA Anxiety Plan: Admit to medical floor Other orders as indicated above Routine AM labs Home medications as ordered He is ambulatory so hold off PT and OT for now DVT prophylaxis: SCDs Code status: DNR/DNI; PCP: Natasha Turpin NP
[2018-08-06] MEDS: Pantoprazole 40 MG Tab.CR PO SCH (08:17)
[2018-08-06] MEDS: Tamsulosin 0.4 MG Cap.ER PO SCH (08:17)
[2018-08-06] MEDS: Losartan 25 MG Tab PO SCH (08:18)
[2018-08-06] MEDS: Saccharomyces Boulardii (Probiotic) 250 MG Cap PO SCH ×2 (08:18→21:28)
[2018-08-06] MEDS: Hydrochlorothiazide 12.5 MG Cap PO SCH (08:19)
[2018-08-06] MEDS: Ezetimibe 10 MG Tab PO SCH (08:19)
[2018-08-06] MEDS: oxyCODONE ER 10 MG TAB.ER PO SCH ×2 (08:20→21:28)
[2018-08-06] MEDS ORDERED: Bisacodyl 10 MG Supp RECTAL ONE (08:27)
[2018-08-06] MEDS ORDERED: Polyethylene Glycol 3350 Powder 17 GM Packet PO ONE (08:36)
[2018-08-06] MEDS ORDERED: DESVENLAFAXINE 50 MG PO SCH (09:00)
[2018-08-06] MEDS: DESVENLAFAXINE SUCCINATE PO SCH (10:26)
[2018-08-06] MEDS: Sodium Chloride 0.9% 1,000 ML IV SCH ×2 (10:29→19:47)
[2018-08-06] MEDS ORDERED: HYDROmorphone 0.5 MG/0.5 ML Syringe IVPUSH PRN (11:30)
[2018-08-06] MEDS: Metoclopramide 10 MG/2 ML SDV IVPUSH SCH ×2 (12:48→17:58)
[2018-08-06] MEDS: Lactulose Soln 10 GM/15 ML 30 ML UD Cup PO SCH ×2 (14:40→21:27)
[2018-08-06] MEDS ORDERED: Hydrocortisone 1% Crm 30 GM Tube TOP PRN (18:23)
[2018-08-06] MEDS: Nicotine 21 MG/24 Hr Patch TRDERM SCH (21:29)
[2018-08-06] MEDS: Levofloxacin/Dextrose 5%-Water 500 MG in Premix Bag 1 BAG IV SCH (21:31)
[2018-08-07] MEDS: Metoclopramide 10 MG/2 ML SDV IVPUSH SCH ×4 (00:41→17:35)
[2018-08-07] MEDS: metroNIDAZOLE/Normal Saline 500 MG in Premix Bag 1 BAG IV SCH ×3 (01:12→17:35)
[2018-08-07] MEDS: Sodium Chloride 0.9% 1,000 ML IV SCH (03:42)
[2018-08-07] MEDS: Pantoprazole 40 MG Tab.CR PO SCH (06:16)
--- NOTE | 2018-08-07 06:28 | PCM.PN ---
- General Info Date of Service: 08/07/18 Admission Dx/Problem (Free Text): Admission Diagnosis/Problem Admission Diagnosis/Problem Abscess of sigmoid colon due to diverticulitis Subjective Update: In to see Geo. He is lying in bed. He reports his pain has greatly improved and he has tolerated his diet so far. He had several large BMs and feels much better. No patient or nursing concerns. Functional Status: Reports: Pain Controlled, Tolerating Diet, Ambulating, Urinating. Denies: New Symptoms - Review of Systems General: Reports: No Symptoms. Denies: Fever, Weakness, Fatigue, Malaise, Chills HEENT: Reports: No Symptoms. Denies: Headaches, Sore Throat Pulmonary: Reports: No Symptoms. Denies: Shortness of Breath, Pleuritic Chest Pain, Cough, Sputum, Wheezing Cardiovascular: Reports: No Symptoms. Denies: Chest Pain, Palpitations, Dyspnea on Exertion, Edema Gastrointestinal: Reports: Abdominal Pain (improved ). Denies: Constipation, Diarrhea, Nausea, Vomiting Genitourinary: Reports: No Symptoms. Denies: Pain Musculoskeletal: Reports: No Symptoms Skin: Reports: No Symptoms. Denies: Cyanosis Neurological: Reports: No Symptoms. Denies: Confusion Psychiatric: Reports: No Symptoms - Patient Data Vitals - Most Recent: Last Vital Signs Temp 98.4 F 08/07/18 01:10 Pulse 57 L 08/07/18 01:10 Resp 16 08/07/18 01:10 BP 129/88 08/07/18 01:10 Pulse Ox 96 08/07/18 01:10 Weight - Most Recent: 202 lb 4 oz I&O - Last 24 Hours: Intake & Output 08/06/18 08/06/18 08/07/18 14:59 22:59 06:59 Intake Total 920 2660 1999 Balance 920 2660 1999 Lab Results Last 24 Hours: Laboratory Results - last 24 hr 08/06/18 08/06/18 08/07/18 Range/Units 06:03 06:03 05:21 WBC 11.77 H 11.21 H (4.23-9.07) K/mm3 RBC 4.29 L 4.48 L (4.63-6.08) M/mm3 Hgb 13.6 L D 14.0 (13.7-17.5) gm/L Hct 40.1 41.9 (40.1-51.0) % MCV 93.5 H 93.5 H (79.0-92.2) fl MCH 31.7 31.3 (25.7-32.2) pg MCHC 33.9 33.4 (32.2-35.5) g/dl RDW Std Deviation 41.9 42.1 (35.1-43.9) fL Plt Count 276 298 (163-337) K/mm3 MPV 10.4 10.6 (9.4-12.3) fl Neut % (Auto) 64.4 61.7 (34.0-67.9) % Lymph % (Auto) 22.9 25.5 (21.8-53.1) % [place] % (Auto) 11.1 11.4 (5.3-12.2) % Eos % (Auto) 1.0 0.9 (0.8-7.0) Baso % (Auto) 0.3 0.3 (0.1-1.2) % Neut # (Auto) 7.57 H 6.92 H (1.78-5.38) K/mm3 Lymph # (Auto) 2.70 2.86 (1.32-3.57) K/mm3 [place] # (Auto) 1.31 H 1.28 H (0.30-0.82) K/mm3 Eos # (Auto) 0.12 0.10 (0.04-0.54) K/mm3 Baso # (Auto) 0.03 0.03 (0.01-0.08) K/mm3 Sodium 140 (136-145) mEq/L Potassium 4.5 (3.5-5.1) mEq/L Chloride 105 (98-107) mEq/L Carbon Dioxide 29 (21-32) mEq/L Anion Gap 10.5 (5-15) BUN 10 (7-18) mg/dL Creatinine 0.9 (0.7-1.3) mg/dL Est Cr Clr Drug Dosing 101.10 mL/min Estimated GFR (MDRD) > 60 (>60) mL/min BUN/Creatinine Ratio 11.1 L (14-18) Glucose 100 (74-106) mg/dL Calcium 8.6 (8.5-10.1) mg/dL Magnesium 1.8 (1.8-2.4) mg/dl C-Reactive Protein 3.5 H* (<1.0) mg/dL Denny Results Last 24 Hours: Microbiology 08/05/18 19:45 Aerobic Blood Culture - Preliminary Blood - Venous - Lab Draw NO GROWTH AFTER 1 DAY Anaerobic Blood Culture - Preliminary NO GROWTH AFTER 1 DAY 08/05/18 19:39 Aerobic Blood Culture - Preliminary Blood - Venous NO GROWTH AFTER 1 DAY Anaerobic Blood Culture - Preliminary NO GROWTH AFTER 1 DAY Med Orders - Current: Current Medications Acetaminophen (Tylenol) 650 mg PO Q4H PRN PRN Reason: Pain (Mild 1-3)/fever Albuterol (Proventil Hfa) 0 gm INH Q4H PRN PRN Reason: Wheezing Albuterol/Ipratropium (Duoneb 3.0-0.5 Mg/3 Ml) 3 ml NEB Q4H PRN PRN Reason: Shortness Of Breath/wheezing Ezetimibe (Zetia) 10 mg PO DAILY [facility] Last Admin: 08/06/18 08:19 Dose: 10 mg Hydralazine HCl (Apresoline) 20 mg IVPUSH Q4H PRN PRN Reason: Hypertension Stop: 08/07/18 09:00 Hydrochlorothiazide (Hydrochlorothiazide) 12.5 mg PO DAILY [facility] Last Admin: 08/06/18 08:19 Dose: 12.5 mg Hydrocortisone (Hydrocortisone 1% Crm) 0 gm TOP Q4H PRN PRN Reason: Itching/Redness Last Admin: 08/06/18 22:07 Dose: 1 applic Hydromorphone HCl (Dilaudid) 0.5 mg IVPUSH Q2H PRN PRN Reason: Pain (severe 7-10) Last Admin: 08/06/18 14:42 Dose: 0.5 mg Levofloxacin/Dextrose 500 mg/ (Premix) 100 mls @ 100 mls/hr IV Q24H [facility] Last Admin: 08/06/18 21:31 Dose: 100 mls/hr Metronidazole 500 mg/ Premix 100 mls @ 100 mls/hr IV Q8H [facility] Last Admin: 08/07/18 01:12 Dose: 100 mls/hr Sodium Chloride (Normal Saline) 1,000 mls @ 125 mls/hr IV ASDIRECTED [facility] Last Admin: 08/07/18 03:42 Dose: 125 mls/hr Lactulose (Cephulac) 30 gm PO TID [facility] Last Admin: 08/06/18 21:27 Dose: Not Given Lorazepam (Ativan) 1 mg IV Q6H PRN PRN Reason: Anxiety Losartan Potassium (Cozaar) 25 mg PO DAILY [facility] Last Admin: 08/06/18 08:18 Dose: 25 mg Magnesium Sulfate (Pharmacy To Dose - Magnesium Replacement) 1 dose .XX ASDIRECTED [facility] Stop: 08/07/18 09:00 Metoclopramide HCl (Reglan) 5 mg IVPUSH Q6H [facility] Stop: 08/07/18 18:01 Last Admin: 08/07/18 06:16 Dose: 5 mg Metoprolol Tartrate (Lopressor) 5 mg IVPUSH Q4H PRN PRN Reason: Tachycardia Stop: 08/07/18 09:00 Nicotine (Habitrol) 21 mg TRDERM Q24H [facility] Last Admin: 08/06/18 21:29 Dose: 21 mg Ondansetron HCl (Zofran) 4 mg IV Q6H PRN PRN Reason: Nausea/Vomiting Oxycodone HCl (Oxycontin) 10 mg PO Q12HR [facility] Stop: 08/07/18 09:00 Last Admin: 08/06/18 21:28 Dose: 10 mg Pantoprazole Sodium (Protonix) 40 mg PO DAILY@0700 [facility] Last Admin: 08/07/18 06:16 Dose: 40 mg Desvenlafaxine Succinate [Pristiq] Pt's Own Med 50 each PO DAILY [facility] Last Admin: 08/06/18 10:26 Dose: Not Given Potassium Chloride (Pharmacy To Dose - Potassium Replacement) 1 dose .XX ASDIRECTED [facility] Stop: 08/07/18 09:00 Saccharomyces Boulardii (Florastor) 250 mg PO BID [facility] Last Admin: 08/06/18 21:28 Dose: 250 mg Tamsulosin HCl (Flomax) 0.4 mg PO DAILY [facility] Last Admin: 08/06/18 08:17 Dose: 0.4 mg Discontinued Medications Bisacodyl (Dulcolax) 10 mg RECTAL ONETIME ONE Stop: 08/06/18 08:28 Last Admin: 08/06/18 09:15 Dose: 10 mg Hydromorphone HCl (Dilaudid) 0.5 mg IVPUSH ONETIME ONE Stop: 08/05/18 18:35 Last Admin: 08/05/18 19:01 Dose: 0.5 mg Hydromorphone HCl (Dilaudid) 0.5 mg IVPUSH ONETIME ONE Stop: 08/05/18 21:31 Last Admin: 08/05/18 21:34 Dose: 0.5 mg Hydromorphone HCl (Dilaudid) 0.5 mg IVPUSH Q2H PRN PRN Reason: Pain (severe 7-10) Last Admin: 08/06/18 10:30 Dose: 0.5 mg Metronidazole 500 mg/ Premix 100 mls @ 100 mls/hr IV Q8H [facility] Last Admin: 08/05/18 19:37 Dose: 100 mls/hr Sodium Chloride (Normal Saline) 1,000 mls @ 999 mls/hr IV ONETIME ONE Stop: 08/05/18 19:33 Last Admin: 08/05/18 19:01 Dose: 999 mls/hr Ceftriaxone Sodium 2 gm/ (Sodium Chloride) 100 mls @ 200 mls/hr IV ONETIME ONE Stop: 08/05/18 19:09 Last Admin: 08/05/18 19:01 Dose: 200 mls/hr Nicotine (Habitrol) 21 mg TRDERM ONETIME ONE Stop: 08/06/18 00:31 Last Admin: 08/06/18 00:59 Dose: 21 mg Non-Formulary Medication (Desvenlafaxine [Pristiq]) 50 mg PO DAILY [facility] Ondansetron HCl (Zofran) 4 mg IVPUSH ONETIME ONE Stop: 08/05/18 18:35 Last Admin: 08/05/18 19:01 Dose: 4 mg Oxycodone HCl (Oxycontin) 10 mg PO ONETIME ONE Stop: 08/05/18 23:00 Last Admin: 08/05/18 23:56 Dose: 10 mg Polyethylene Glycol (Miralax) 17 gm PO ONETIME ONE Stop: 08/06/18 08:37 Last Admin: 08/06/18 09:15 Dose: 17 gm - Exam Quality Assessment: DVT Prophylaxis General: Alert, Oriented, Cooperative, No Acute Distress HEENT: Pupils Equal, Pupils Reactive, EOMI, Mucous Membr. Moist/Rule Neck: Supple, Trachea Midline, No JVD Lungs: Clear to Auscultation, Normal Respiratory Effort Cardiovascular: Regular Rate, Regular Rhythm GI/Abdominal Exam: Soft, No Organomegaly, No Distention, Tender (mild lower quadrant ), Abnormal Bowel Sounds (Male) Exam: Deferred Back Exam: Normal Inspection, Full Range of Motion Extremities: Normal Inspection, Normal Range of Motion, Non-Tender, No Pedal Edema, Normal Capillary Refill Peripheral Pulses: 2+: Radial (L), Radial (R), Dorsalis Pedis (L), Dorsalis Pedis (R) Skin: Warm, Dry, Intact Neurological: No New Focal Deficit Psy/Mental Status: Alert, Normal Affect, Normal Mood - Problem List & Annotations (1) Abscess of sigmoid colon due to diverticulitis SNOMED Code(s): 1228900252871900 Code(s): K57.20 - DVTRCLI OF LG INT W PERFORATION AND ABSCESS W/O BLEEDING Status: Acute Priority: High Current Visit: Yes (2) HTN (hypertension) SNOMED Code(s): 56409222 Code(s): I10 - ESSENTIAL (PRIMARY) HYPERTENSION Status: Chronic Priority : Medium Current Visit: No (3) GERD (gastroesophageal reflux disease) SNOMED Code(s): 684986399 Code(s): K21.9 - GASTRO-ESOPHAGEAL REFLUX DISEASE WITHOUT ESOPHAGITIS Status: Chronic Priority: Medium Current Visit: No Qualifiers: Esophagitis presence: esophagitis presence not specified Qualified Code(s) : K21.9 - Gastro-esophageal reflux disease without esophagitis (4) BPH (benign prostatic hyperplasia) SNOMED Code(s): 897544097 Code(s): N40.0 - BENIGN PROSTATIC HYPERPLASIA WITHOUT LOWER URINRY TRACT SYMP Status: Chronic Priority: Low Current Visit: No Qualifiers: Lower urinary tract symptom presence: unspecified whether lower urinary tract symptoms present Qualified Code(s): N40.0 - Benign prostatic hyperplasia without lower urinary tract symptoms (5) Asthma SNOMED Code(s): 021555323 Code(s): J45.909 - UNSPECIFIED ASTHMA, UNCOMPLICATED Status: Chronic Priority: Low Current Visit: No Qualifiers: Asthma severity: unspecified severity Asthma persistence: unspecified Asthma complication type: unspecified Qualified Code(s): J45.909 - Unspecified asthma, uncomplicated (6) Constipation SNOMED Code(s): 52868755 Code(s): K59.00 - CONSTIPATION, UNSPECIFIED Status: Acute Priority: High Current Visit: Yes Qualifiers: Constipation type: unspecified constipation type Qualified Code(s): K59.00 - Constipation, unspecified - Problem List Review Problem List Initiated/Reviewed/Updated: Yes - My Orders Last 24 Hours: My Active Orders 08/06/18 07:02 Ambulate [RC] QID - Plan Plan:: I/P: Acute: Diverticulitis of sigmoid colon with abscess -Reported to [facility] with 2 weeks of lower quadrant abdominal pain - severe cramping and "feels full" -Has not had BM for 6 days prior -CT scan at [place] showed Acute sigmoid diverticulitis with peridiverticular abscess superiorly measuring [id number]. -Local surgeon, Dr. Aguayo consulted by ED and says patient will need IV abx and possible sigmoid colectomy, however he cannot perform that here -[facility] surgeon Dr. Gooden contacted and does not feel abscess is surgical at this time -WBC 15.1 ([place])-->11.77-->11.21 -CRP 34.6 ([place])-->3.5-->5.8 -Metronidazole 500mg Q8Hr -Levaquin 500mg Q24H -IV fluids as ordered -> discontinue -Clear liquid diet -> advance to soft, non-fatty, non-greasy -Ambulate -Probiotic -Pain medications as ordered Tobacco use disorder -0.5 PPD smoker for 38 years -Nicotine patch as ordered -Tobacco cessation counseling S/P Constipation -Reports no BM in past 6 days -States he feels like he is constipated -Lactulose, Reglan and rectal suppository per Dr. Coffman -Clear liquid diet for now -Prune juice as requested -Feeling of fullness likely exacerbated by above Chronic: HTN Asthma GERD BPH Arthritis Chronic back pain OA RA Anxiety Plan: Admit to medical floor Other orders as indicated above Routine AM labs Home medications as ordered He is ambulatory so hold off PT and OT for now DVT prophylaxis: SCDs Code status: DNR/DNI; PCP: Natasha Turpin NP
[2018-08-07] MEDS: Tamsulosin 0.4 MG Cap.ER PO SCH (08:19)
[2018-08-07] MEDS: Saccharomyces Boulardii (Probiotic) 250 MG Cap PO SCH ×2 (08:19→20:51)
[2018-08-07] MEDS: Losartan 25 MG Tab PO SCH (08:19)
[2018-08-07] MEDS: Hydrochlorothiazide 12.5 MG Cap PO SCH (08:21)
[2018-08-07] MEDS: Ezetimibe 10 MG Tab PO SCH (08:21)
[2018-08-07] MEDS: oxyCODONE ER 10 MG TAB.ER PO SCH (08:22)
[2018-08-07] MEDS: Lactulose Soln 10 GM/15 ML 30 ML UD Cup PO SCH (08:22)
[2018-08-07] MEDS: DESVENLAFAXINE SUCCINATE PO SCH (08:24)
[2018-08-07] MEDS ORDERED: DESVENLAFAXINE SUCCINATE PO SCH (09:00)
[2018-08-07] MEDS: Nicotine 21 MG/24 Hr Patch TRDERM SCH (20:51)
[2018-08-07] MEDS: Levofloxacin/Dextrose 5%-Water 500 MG in Premix Bag 1 BAG IV SCH (21:00)
[2018-08-08] MEDS: metroNIDAZOLE/Normal Saline 500 MG in Premix Bag 1 BAG IV SCH ×2 (02:44→11:13)
[2018-08-08] MEDS: Pantoprazole 40 MG Tab.CR PO SCH (06:05)
[2018-08-08] MEDS ORDERED: Sodium Chloride 0.9% 10 ML Syringe FLUSH PRN (07:58)
[2018-08-08] MEDS ORDERED: Iopamidol 755 Mg/ML 200 ML Bottle IV ONE (07:58)
[2018-08-08] MEDS ORDERED: Diatrizoate Meglumine/Diatrizoate Sodium 37% 120 ML Bottle PO ONE (07:58)
[2018-08-08] MEDS: Ezetimibe 10 MG Tab PO SCH (08:11)
[2018-08-08] MEDS: Losartan 25 MG Tab PO SCH (08:11)
[2018-08-08] MEDS: Tamsulosin 0.4 MG Cap.ER PO SCH (08:11)
[2018-08-08] MEDS: Saccharomyces Boulardii (Probiotic) 250 MG Cap PO SCH (08:11)
[2018-08-08] MEDS: Hydrochlorothiazide 12.5 MG Cap PO SCH (08:11)
[2018-08-08 08:16] VITALS: BP 130/88
[2018-08-08] MEDS ORDERED: Nicotine 21 MG/24 Hr Patch TRDERM SCH (09:00)
[2018-08-08] MEDS ORDERED: DESVENLAFAXINE SUCCINATE PO SCH (09:00)
--- NOTE | 2018-08-08 10:57 | CT ---
CT abdomen and pelvis Technique: Multiple axial sections were obtained from above the dome of the diaphragm inferiorly through the pubic symphysis. Intravenous and oral contrast was utilized. Delayed images were obtained through the bladder. Comparison: Previous CT abdomen and pelvis study performed at [place] dated 08/05/18. Findings: Bilobed low density finding is seen adjacent to the sigmoid colon. This is felt compatible with abscess from diverticulitis. This appear stable from prior exam. Greatest measurement is approximately 3.9 cm. Diverticuli are seen within the sigmoid colon. No new areas of abscess are seen. No worsening of the inflammatory change is seen from prior CT exam. Visualized lung bases show nothing acute. Liver contains no focal abnormality. Spleen appears within normal limits. Adrenal glands show no nodule. Pancreas is normal. Kidneys show symmetric contrast enhancement without hydronephrosis or mass. Appendix is seen which is normal in size. No pelvic mass or adenopathy is seen. Delayed images show contrast within the distal ureters and within the bladder. Bone window settings were reviewed which appear within normal limits for the patient's age. Impression: 1. Findings of diverticulitis within the sigmoid colon with a bilobed adjacent abscess being seen. These findings are stable from prior outside CT exam of 08/05/18. No worsening is seen. 2. No other acute abnormality is appreciated. Diagnostic code #3
[2018-08-08] MEDS ORDERED: Magnesium Oxide 400 MG Tab PO ONE (11:30)
--- NOTE | 2018-08-08 15:06 | PCM.DCSUM1 ---
Discharge Summary - Hospital Course HPI Initial Comments: Samuel White is a 53 yo male who presented to our ED on 08/05/18 after being seen at the [facility] for diverticulitis with abscess formation found on abdominal CT. He was reported to have a white count of 15.1 and a CRP of 34.6.reports pain started about 2 weeks prior at the getting worse associated with nausea. Reports pain is severe cramping sensation in his lower abdomen and that it "feels full". He's not had BM for 6 days and had yet to eatthat day. He's had 2 prior episodes of diverticulitis with his first episode being about a year ago and the second episode about 4 months ago. In the ED temp was 96.7 Fahrenheit. Pulse was 83. Respirations 16. Blood pressure 152/99. Pulse ox 100%. Blood cultures were obtained and lactic acid was drawn and found to be 0.8. Plantar milligram Flagyl was started. [facility] labs are obtained and show a WBC of 15.1 segmented neutrophils absolute of 11.3 , neutrophils of 74.9%, lymphocytes of 17.6%, monocytes of 6.9%, and infection with a left shift. CMP shows a glucose of 109. CRP is 34.6. UA is negative for UTI. CT report from [facility] shows acute sigmoid diverticulitis with peridiverticular abscess superiorly measuring 33 x 26 mm. 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 Aguayo is contacted by the ED provider and reports that abscess is not largest wart surgery but he should be admitted for IV antibiotic treatment as he is symptomatic. Reports he may need sigmoid colectomy if he has had this over 2 times and being a 50-year-old. Dr. Aguayo reports he cannot perform the surgery here. original plan was for transfer however after ED provider discussed case with on-call [facility] surgeon, Dr. Gooden, she reports that she does not feel that he will need surgical intervention. She does not feel a transfer would be warranted as she will be providing the exact same care there. After some discussion the patient was willing to stay here for IV antibiotics knowing that he will likely need to follow-up with surgery in [place] as an outpatient. he carries a history of hypertension, asthma, GERD, prostate disorder, arthritis , chronic back pain, osteoporosis, RA, anxiety. He is a current every day smoker. His PCP is Natasha Turpin NP. Diagnosis: Stroke: No - Discharge Data Discharge Date: 08/08/18 Discharge Disposition: Home, Self-Care 01 Condition: Good - Discharge Diagnosis/Problem(s) (1) Abscess of sigmoid colon due to diverticulitis SNOMED Code(s): 9930753716425820 ICD Code: K57.20 - DVTRCLI OF LG INT W PERFORATION AND ABSCESS W/O BLEEDING Status: Acute Priority: High (2) Tobacco dependence due to cigarettes SNOMED Code(s): 79658665204170801 ICD Code: F17.210 - NICOTINE DEPENDENCE, CIGARETTES, UNCOMPLICATED Status: Chronic (3) Constipation SNOMED Code(s): 15979909 ICD Code: K59.00 - CONSTIPATION, UNSPECIFIED Status: Chronic Priority: High Qualifiers: Constipation type: unspecified constipation type Qualified Code(s): K59.00 - Constipation, unspecified - Patient Summary/Data Operative Procedure(s) Performed: None Complications: None Consults: Consultations 08/05/18 22:55 Consult to Case Management/[place] [CONS] Routine Consult to Spiritual Care [CONS] Routine Labs Pending at D/C: None Recommended Follow-up Testing/Procedures: Colonoscopy in 4-6 weeks Planned Operative Procedure(s) after DC: Colonoscopy in 4-6 weeks Hospital Course: Patient was primarily admitted for abdominal that has been going on for 2 weeks associated with nausea, sensation of fulness and no bowel movement for 6 days and was diagnosed for diverticulitis with abscess found on abdominal/pelvis CT scan. He was initially seen at the clinic but was referred to use for further evaluation and treatment. This was his 3rd episode within the last year. Unfortunately, he was never set up for colonoscopy. On presentation to ED, his case was referred to our hr business partner consultant surgeon Olivier who reviewed his CT scan and recommended possible possible surgical colectomy since this was his 3rd and with him being over 50 years of age. However he deferred surgical plan to [place]. So then his case was discussed with the on- call general surgeon in [facility], Dr. Gooden. She initially accepted him but then changed her mind so patient ended up here for medical management. He was made aware prior to coming in for admission that we could only offer him here medical management and that he may likely need transfer any time he gets worse. Once he expressed understanding and in agreement with the plan of care, he was then admitted and moved to the [facility] floor for medical treatment. He received intravenous antibiotics, intravenous fluids, pain medications and prn medications for symptomatic control. He slowly improved on this regimen. His was gradually advanced until he tolerated regular meal w/o any issues. His repeat CT scan shows no worsening of his previous abnormal findings. His hospital course was uncomplicated and the rest of his chronic medical illness remained stable during this admission. Once medically stable, he was then discharge home with additional course of oral antibiotics to take. Patient was advised to comply with discharge instructions and was further advised to follow up with PCP after discharge. Lastly, he was told to come back or seek immediate care should his symptoms persist or get worse. The patient and his at beside expressed understanding and in agreement with the plans as discussed above. All questions and concerns were answered. - Patient Instructions Diet: Usual Diet as Tolerated Diet, Other: high fiber diet Activity: As Tolerated Driving: May Drive Today Showering/Bathing: May Shower Notify Provider of: Fever, Increased Pain, Swelling and Redness, Nausea and/or Vomiting Other/Special Instructions: - Please take all new medications as directed. - Resume all home medications. - Recommend follow up CBC, Mg and BMP in 1 week through your PCP's office. - Recommend repeat imaging after competion of antibiotic treatment. - Recommend outpatient General Surgery eval in 4-6 weeks after discharge. - Continue taking OTC Kefir TID until completion of antibiotic treatment. - Drink adequate fluids everyday. - Avoid alcohol drinking taking Logan! - Relative rest until Sunday then routine home activities as tolerated thereafter. - Call or follow up with your PCP for any questions or concerns after discharge. - Follow up with your PCP in 1 week with repeat labs. - Come back or seek immediate care should your symptoms persist or get worse - Discharge Plan *PRESCRIPTION DRUG MONITORING PROGRAM REVIEWED*: Not Applicable *COPY OF PRESCRIPTION DRUG MONITORING REPORT IN PATIENT MARE: Not Applicable Prescriptions/Med Rec: Hydrocodone/Acetaminophen [Logan 7.5-325 Tablet] 1 each PO Q6H #15 tablet metroNIDAZOLE [Flagyl] 500 mg PO Q8H #21 tab Nicotine [Habitrol] 21 mg TD DAILY #30 patch Polyethylene Glycol 3350 [MiraLAX] 17 gm PO DAILY #10 packet Saccharomyces Boulardii [Florastor] 250 mg PO BID #14 cap Sennosides/Docusate Sodium [Senokot-S Tablet] 1 each PO DAILY #15 tablet Sulfamethoxazole/Trimethoprim [Bactrim Ds Tablet] 1 each PO BID #14 tablet Home Medications: Home Meds Valsartan/Hydrochlorothiazide [Valsartan-Hctz 160-12.5 mg Tab] 1 tab PO DAILY [History] Desvenlafaxine Succinate [Pristiq] 50 mg PO DAILY 06/04/18 [History] Omeprazole Magnesium [Prilosec Otc] 20 mg PO DAILY 06/04/18 [History] Valsartan 30 mg PO DAILY 06/04/18 [History] Albuterol [Ventolin HFA] 1 puff INH Q4H PRN 08/05/18 [History] Tamsulosin [Flomax] 0.4 mg PO DAILY 08/05/18 [History] Hydrocodone/Acetaminophen [Logan 7.5-325 Tablet] 1 each PO Q6H #15 tablet [Rx] Nicotine [Habitrol] 21 mg TD DAILY #30 patch 08/08/18 [Rx] Polyethylene Glycol 3350 [MiraLAX] 17 gm PO DAILY #10 packet 08/08/18 [Rx] Saccharomyces Boulardii [Florastor] 250 mg PO BID #14 cap 08/08/18 [Rx] Sennosides/Docusate Sodium [Senokot-S Tablet] 1 each PO DAILY #15 tablet [Rx] Sulfamethoxazole/Trimethoprim [Bactrim Ds Tablet] 1 each PO BID #14 tablet 08/08 [Rx] metroNIDAZOLE [Flagyl] 500 mg PO Q8H #21 tab 08/08/18 [Rx] Oxygen Therapy Mode: Room Air Patient Handouts: Constipation, Adult, [id number], Diverticulitis, Steps to Quit Smoking Referrals: Natasha Turpin MD [Primary Care Provider] - 08/15/18 10:00 am (Please follow up with Dr. Turpin on August 15 at 1000.) - Discharge Summary/Plan Comment DC Time >30 min.: No Discharge Summary/Plan Comment: Discharge to Home - General Info Date of Service: 08/08/18 Admission Dx/Problem (Free Text: Admission Diagnosis/Problem Admission Diagnosis/Problem Abscess of sigmoid colon due to diverticulitis Subjective Update: In to see Geo. He is lying in bed. He reports his pain has greatly improved and he has tolerated his diet so far. He had several large BMs and feels much better. No patient or nursing concerns. Functional Status: Reports: Pain Controlled, Tolerating Diet. Denies: New Symptoms - Review of Systems General: Denies: Fever, Weakness, Fatigue, Malaise, Chills HEENT: Reports: No Symptoms Pulmonary: Denies: Shortness of Breath Cardiovascular: Denies: Chest Pain, Dyspnea on Exertion, Lightheadedness Gastrointestinal: Reports: Flatus. Denies: Abdominal Pain, Constipation, Decreased Appetite, Diarrhea, Difficulty Swallowing, Hematochezia, Melena, Nausea, Vomiting Genitourinary: Reports: No Symptoms Musculoskeletal: Reports: No Symptoms Skin: Denies: Cyanosis, Mottled, Pallor, Diaphoresis, Bruising Neurological: Denies: Confusion, Difficulty Walking, Weakness, Gait Disturbance Psychiatric: Denies: No Symptoms, Depression, Mood Lability, Anxiety, Hallucinations Systems Review Comment: No overnight or acute issues. He rested well last night. He is eating and drinking okay. He has no GI complaints except when he when to the bathroom an had a small bowel movement but no rectal bleed or any thing. He is afebrile and with much improved leukocytosis. - Patient Data Vitals - Most Recent: Last Vital Signs Temp 36.6 C 08/08/18 08:05 Pulse 72 08/08/18 08:05 Resp 14 08/08/18 08:05 BP 130/88 08/08/18 08:11 Pulse Ox 98 08/08/18 08:05 Weight - Most Recent: 90.407 kg I&O - Last 24 hours: Intake & Output 08/08/18 08/08/18 08/08/18 06:59 14:59 22:59 Intake Total 600 240 Balance 600 240 Lab Results - Last 24 hrs: Laboratory Results - last 24 hr 08/08/18 08/08/18 Range/Units 05:20 05:20 WBC 9.53 H (4.23-9.07) K/mm3 RBC 4.58 L (4.63-6.08) M/mm3 Hgb 14.3 (13.7-17.5) gm/L Hct 42.0 (40.1-51.0) % MCV 91.7 (79.0-92.2) fl MCH 31.2 (25.7-32.2) pg MCHC 34.0 (32.2-35.5) g/dl RDW Std Deviation 41.2 (35.1-43.9) fL Plt Count 308 (163-337) K/mm3 MPV 10.5 (9.4-12.3) fl Neut % (Auto) 63.2 (34.0-67.9) % Lymph % (Auto) 23.3 (21.8-53.1) % Winn % (Auto) 11.2 (5.3-12.2) % Eos % (Auto) 1.8 (0.8-7.0) Baso % (Auto) 0.3 (0.1-1.2) % Neut # (Auto) 6.02 H (1.78-5.38) K/mm3 Lymph # (Auto) 2.22 (1.32-3.57) K/mm3 Winn # (Auto) 1.07 H (0.30-0.82) K/mm3 Eos # (Auto) 0.17 (0.04-0.54) K/mm3 Baso # (Auto) 0.03 (0.01-0.08) K/mm3 Sodium 138 (136-145) mEq/L Potassium 4.2 (3.5-5.1) mEq/L Chloride 103 (98-107) mEq/L Carbon Dioxide 29 (21-32) mEq/L Anion Gap 10.2 (5-15) BUN 13 (7-18) mg/dL Creatinine 1.0 (0.7-1.3) mg/dL Est Cr Clr Drug Dosing 90.99 mL/min Estimated GFR (MDRD) > 60 (>60) mL/min BUN/Creatinine Ratio 13.0 L (14-18) Glucose 113 H (74-106) mg/dL Calcium 9.2 (8.5-10.1) mg/dL Magnesium 1.7 L (1.8-2.4) mg/dl C-Reactive Protein 4.0 H* (<1.0) mg/dL BEATRIZ Results - Last 24 hrs: Microbiology 08/05/18 19:45 Aerobic Blood Culture - Preliminary Blood - Venous - Lab Draw NO GROWTH AFTER 2 DAYS Anaerobic Blood Culture - Preliminary NO GROWTH AFTER 2 DAYS 08/05/18 19:39 Aerobic Blood Culture - Preliminary Blood - Venous NO GROWTH AFTER 2 DAYS Anaerobic Blood Culture - Preliminary NO GROWTH AFTER 2 DAYS Med Orders - Current: Current Medications Acetaminophen (Tylenol) 650 mg PO Q4H PRN PRN Reason: Pain (Mild 1-3)/fever Albuterol (Proventil Hfa) 0 gm INH Q4H PRN PRN Reason: Wheezing Albuterol/Ipratropium (Duoneb 3.0-0.5 Mg/3 Ml) 3 ml NEB Q4H PRN PRN Reason: Shortness Of Breath/wheezing Ezetimibe (Zetia) 10 mg PO DAILY [facility] Last Admin: 08/08/18 08:11 Dose: 10 mg Hydrochlorothiazide (Hydrochlorothiazide) 12.5 mg PO DAILY [facility] Last Admin: 08/08/18 08:11 Dose: 12.5 mg Hydrocortisone (Hydrocortisone 1% Crm) 0 gm TOP Q4H PRN PRN Reason: Itching/Redness Last Admin: 08/06/18 22:07 Dose: 1 applic Hydromorphone HCl (Dilaudid) 0.5 mg IVPUSH Q2H PRN PRN Reason: Pain (severe 7-10) Last Admin: 08/06/18 14:42 Dose: 0.5 mg Levofloxacin/Dextrose 500 mg/ (Premix) 100 mls @ 100 mls/hr IV Q24H [facility] Last Admin: 08/07/18 21:00 Dose: 100 mls/hr Metronidazole 500 mg/ Premix 100 mls @ 100 mls/hr IV Q8H [facility] Last Admin: 08/08/18 11:13 Dose: 100 mls/hr Lorazepam (Ativan) 1 mg IV Q6H PRN PRN Reason: Anxiety Losartan Potassium (Cozaar) 25 mg PO DAILY [facility] Last Admin: 08/08/18 08:11 Dose: 25 mg Miscellaneous Information (Remove Patch) 1 ea TRDERM DAILY [facility] Last Admin: 08/08/18 08:13 Dose: 1 ea Nicotine (Habitrol) 21 mg TRDERM DAILY [facility] Last Admin: 08/08/18 08:12 Dose: 21 mg Ondansetron HCl (Zofran) 4 mg IV Q6H PRN PRN Reason: Nausea/Vomiting Last Admin: 08/08/18 12:55 Dose: 4 mg Pantoprazole Sodium (Protonix) 40 mg PO DAILY@0700 [facility] Last Admin: 08/08/18 06:05 Dose: 40 mg Desvenlafaxine Succinate [Pristiq] Pt's Own Med 0 each PO DAILY [facility] Last Admin: 08/08/18 08:12 Dose: 1 each Saccharomyces Boulardii (Florastor) 250 mg PO BID [facility] Last Admin: 08/08/18 08:11 Dose: 250 mg Sodium Chloride (Saline Flush) 10 ml FLUSH ONETIME PRN PRN Reason: IV FLUSH Last Admin: 08/08/18 10:13 Dose: 10 ml Tamsulosin HCl (Flomax) 0.4 mg PO DAILY [facility] Last Admin: 08/08/18 08:11 Dose: 0.4 mg Discontinued Medications Bisacodyl (Dulcolax) 10 mg RECTAL ONETIME ONE Stop: 08/06/18 08:28 Last Admin: 08/06/18 09:15 Dose: 10 mg Diatrizoate Meglum/Diatrizoate Sod (Gastrografin 37%) 120 ml PO ONETIME ONE Stop: 08/08/18 07:59 Last Admin: 08/08/18 10:11 Dose: 90 ml Hydralazine HCl (Apresoline) 20 mg IVPUSH Q4H PRN PRN Reason: Hypertension Stop: 08/07/18 09:00 Hydromorphone HCl (Dilaudid) 0.5 mg IVPUSH ONETIME ONE Stop: 08/05/18 18:35 Last Admin: 08/05/18 19:01 Dose: 0.5 mg Hydromorphone HCl (Dilaudid) 0.5 mg IVPUSH ONETIME ONE Stop: 08/05/18 21:31 Last Admin: 08/05/18 21:34 Dose: 0.5 mg Hydromorphone HCl (Dilaudid) 0.5 mg IVPUSH Q2H PRN PRN Reason: Pain (severe 7-10) Last Admin: 08/06/18 10:30 Dose: 0.5 mg Metronidazole 500 mg/ Premix 100 mls @ 100 mls/hr IV Q8H [facility] Last Admin: 08/05/18 19:37 Dose: 100 mls/hr Sodium Chloride (Normal Saline) 1,000 mls @ 999 mls/hr IV ONETIME ONE Stop: 08/05/18 19:33 Last Admin: 08/05/18 19:01 Dose: 999 mls/hr Ceftriaxone Sodium 2 gm/ (Sodium Chloride) 100 mls @ 200 mls/hr IV ONETIME ONE Stop: 08/05/18 19:09 Last Admin: 08/05/18 19:01 Dose: 200 mls/hr Sodium Chloride (Normal Saline) 1,000 mls @ 125 mls/hr IV ASDIRECTED [facility] Last Admin: 08/07/18 03:42 Dose: 125 mls/hr Iopamidol (Isovue-370 (76%)) 200 ml IV ONETIME ONE Stop: 08/08/18 07:59 Last Admin: 08/08/18 10:11 Dose: 100 ml Lactulose (Cephulac) 30 gm PO TID [facility] Last Admin: 08/07/18 08:22 Dose: Not Given Magnesium Oxide (Magnesium Oxide) 800 mg PO ONETIME ONE Stop: 08/08/18 11:31 Last Admin: 08/08/18 12:09 Dose: 800 mg Magnesium Sulfate (Pharmacy To Dose - Magnesium Replacement) 1 dose .XX ASDIRECTED [facility] Stop: 08/07/18 09:00 Metoclopramide HCl (Reglan) 5 mg IVPUSH Q6H [facility] Stop: 08/07/18 18:01 Last Admin: 08/07/18 17:35 Dose: 5 mg Metoprolol Tartrate (Lopressor) 5 mg IVPUSH Q4H PRN PRN Reason: Tachycardia Stop: 08/07/18 09:00 Miscellaneous Information (Remove Patch) 1 ea TRDERM BEDTIME [facility] Nicotine (Habitrol) 21 mg TRDERM ONETIME ONE Stop: 08/06/18 00:31 Last Admin: 08/06/18 00:59 Dose: 21 mg Nicotine (Habitrol) 21 mg TRDERM Q24H [facility] Last Admin: 08/07/18 20:51 Dose: 21 mg Non-Formulary Medication (Desvenlafaxine [Pristiq]) 50 mg PO DAILY [facility] Ondansetron HCl (Zofran) 4 mg IVPUSH ONETIME ONE Stop: 08/05/18 18:35 Last Admin: 08/05/18 19:01 Dose: 4 mg Oxycodone HCl (Oxycontin) 10 mg PO Q12HR [facility] Stop: 08/07/18 09:00 Last Admin: 08/07/18 08:22 Dose: Not Given Oxycodone HCl (Oxycontin) 10 mg PO ONETIME ONE Stop: 08/05/18 23:00 Last Admin: 08/05/18 23:56 Dose: 10 mg Desvenlafaxine Succinate [Pristiq] Pt's Own Med 50 each PO DAILY [facility] Last Admin: 08/07/18 08:24 Dose: 50 each Desvenlafaxine Succinate [Pristiq] Pt's Own Med 0 each PO DAILY [facility] Polyethylene Glycol (Miralax) 17 gm PO ONETIME ONE Stop: 08/06/18 08:37 Last Admin: 08/06/18 09:15 Dose: 17 gm Potassium Chloride (Pharmacy To Dose - Potassium Replacement) 1 dose .XX ASDIRECTED [facility] Stop: 08/07/18 09:00 - Exam General: Reports: Alert, Oriented, Cooperative, No Acute Distress HEENT: Reports: Pupils Equal, Pupils Reactive, EOMI, Mucous Membr. Moist/Cassandra Neck: Reports: Supple Lungs: Reports: Clear to Auscultation, Normal Respiratory Effort Cardiovascular: Reports: Regular Rate, Regular Rhythm GI/Abdominal Exam: Normal Bowel Sounds, Soft, Non-Tender, No Organomegaly, No Distention, No Abnormal Bruit, No Mass (Male) Exam: Deferred Rectal (Males) Exam: Deferred Back Exam: Reports: Normal Inspection, Full Range of Motion Extremities: Normal Inspection, Normal Range of Motion, Non-Tender, No Pedal Edema, Normal Capillary Refill Skin: Reports: Warm, Dry, Intact Neurological: Reports: No New Focal Deficit, Normal Gait Psy/Mental Status: Reports: Alert, Normal Affect, Normal Mood
== END 2018-08-08 15:32 | disposition home or self-care (01) | DRG 244 ==
LOC: JD.ED 17:47 → JD.MS 21:45
PROVIDERS: ADMIT Internal Medicine; ATTEND Internal Medicine
DX: K57.20 Diverticulitis of large intestine with perforation and abscess without bleeding (principal); I10 Essential (primary) hypertension; J45.909 Unspecified asthma, uncomplicated; K21.9 Gastro-esophageal reflux disease without esophagitis; M19.90 Unspecified osteoarthritis, unspecified site; G89.29 Other chronic pain; M54.9 Dorsalgia, unspecified; M81.0 Age-related osteoporosis without current pathological fracture; M06.9 Rheumatoid arthritis, unspecified; F41.9 Anxiety disorder, unspecified; F17.210 Nicotine dependence, cigarettes, uncomplicated; K59.00 Constipation, unspecified; H91.90 Unspecified hearing loss, unspecified ear; R06.83 Snoring; N40.0 Benign prostatic hyperplasia without lower urinary tract symptoms; F32.9 Major depressive disorder, single episode, unspecified; Z96.619 Presence of unspecified artificial shoulder joint; Z79.899 Other long term (current) drug therapy; Z88.8 Allergy status to other drugs, medicaments and biological substances; Z66 Do not resuscitate
CPT/HCPCS: 36415; 74177; 74177-26; 80048; 83605; 83735; 85025; 86140; 87040; 96365; 96367; 96375; 96376; 99284-25; 99285; A9270-GY; J0696; J1170; J1956; J2405; J2765; J3490; J7030; J7040; Q9963; Q9967

== ENCOUNTER 2020-12-06 21:25 | Emergency (ER) | payer SELFPAY ==
[2020-12-06 21:39] VITALS: BP 149/95; PULSE 79
== END 2020-12-06 22:57 | disposition left against medical advice (07) ==
LOC: JD.ED 21:25
DX: R06.02 Shortness of breath (principal); Z53.21 Procedure and treatment not carried out due to patient leaving prior to being seen by health care provider

== ENCOUNTER 2020-12-07 | Emergency (ER) | payer SELFPAY ==
--- NOTE | 2020-12-07 01:29 | EDM.PDOC ---
ED HPI GENERAL MEDICAL PROBLEM - General Chief Complaint: Respiratory Problem Stated Complaint: SOB Time Seen by Provider: 12/07/20 01:25 Source of Information: Reports: Patient, Family (spouse) History Limitations: Reports: No Limitations - History of Present Illness INITIAL COMMENTS - FREE TEXT/NARRATIVE: 55-year-old male presents to the ED for evaluation of chest pain and dyspnea on exertion. He believes that symptoms are gradually worsening over the last 6 weeks. He can walk intermediate [place] before he is stopped because of dyspnea and he has to take a rest. He did not describe any central chest pain with this. He was worked up yesterday in [place] at the [facility] clinic with chest x-ray and ECGs and told that he had bronchitis and was started on an oral antibiotic. He does clinically sound like he has chronic sinusitis and postnasal drip making him cough to some degree. He has a deviated nasal septum to the right side which does cause him to have chronic ear infections. He has had myringotomy tubes placed x3 and nasal surgery at age 28. He has no fever or chills. He did have a negative COVID-19 test in [place] yesterday as well. Patient does have a history of some anxiety depression apparently controlled with Pristiq in the past but he is no longer on this medication. He denies cough or any sputum production. Strong family history of coronary disease with a younger brother dying at age 46 from a myocardial infarction and a father at age 52 from myocardial infarction. Both were smokers as is he. He is trying to cut down to 5 cigarettes daily. He has never had an ECG stress test. Onset: Other (He states gradually worsening dyspnea over the last 6 weeks with angina equivalent upon walking he will have to stop due and get his breath.) Onset Date: 10/20/20 Duration: Week(s):, Getting Worse Location: Reports: Chest (With no chest pain per se.) Quality: Reports: Other (Apnea on exertion) Severity: Moderate Improves with: Reports: Rest Worsens with: Reports: Movement (Symptoms with activity and movement) Context: Denies: Activity, Exercise, Lifting, Sick Contact, Trauma, Other Associated Symptoms: Reports: Malaise, Shortness of Breath. 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) - Related Data Allergies Allergy/AdvReac Type Severity Reaction Status Date / Time Mstxsfe-[id number]-Edp Reductase AdvReac Disorientat Verified 12/07/20 01:08 Inhibitor ion Home Meds: Home Meds Valsartan/Hydrochlorothiazide [Valsartan-Hctz 160-12.5 mg Tab] 1 tab PO DAILY 01/12/16 [History] Desvenlafaxine Succinate [Pristiq] 50 mg PO DAILY 06/04/18 [History] Omeprazole Magnesium [Prilosec Otc] 20 mg PO DAILY 06/04/18 [History] Valsartan 30 mg PO DAILY 06/04/18 [History] Albuterol [Ventolin HFA] 1 puff INH Q4H PRN 08/05/18 [History] Tamsulosin [Flomax] 0.4 mg PO DAILY 08/05/18 [History] Hydrocodone/Acetaminophen [[place] 7.5-325 Tablet] 1 each PO Q6H #15 tablet 08/08/18 [Rx] Nicotine [Habitrol] 21 mg TD DAILY #30 patch 08/08/18 [Rx] Saccharomyces Boulardii [Florastor] 250 mg PO BID #14 cap 08/08/18 [Rx] Sennosides/Docusate Sodium [Senokot-S Tablet] 1 each PO DAILY #15 tablet 08/08/18 [Rx] Sulfamethoxazole/Trimethoprim [Bactrim Ds Tablet] 1 each PO BID #14 tablet 08/08/18 [Rx] metroNIDAZOLE [Flagyl] 500 mg PO Q8H #21 tab 08/08/18 [Rx] polyethylene glycoL 3350 [MiraLAX] 17 gm PO DAILY #10 packet 08/08/18 [Rx] hydroCHLOROthiazide [Hydrochlorothiazide] 25 mg PO DAILY #30 tab 12/07/20 [Rx] Past Medical History HEENT History: Reports: Hard of Hearing, Other (See Below), Sinusitis Other HEENT History: has hearing aids and glasses (doesn't always wear) Cardiovascular History: Reports: Hypertension, Other (See Below) (Patient states he did have an angiogram done he believes at [facility] in [place] in 2019 through the radial artery apparently had 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 Denies: Stents Respiratory History: Reports: Asthma Other Respiratory History: Severe Snoring Gastrointestinal History: Reports: GERD Genitourinary History: Reports: Prostate Disorder Musculoskeletal History: Reports: Arthritis, Back Pain, Chronic, Other (See Below), Osteoarthritis, RA Other Musculoskeletal History: fracture hand - chronic neck pain Neurological History: Reports: None Psychiatric History: Reports: Anxiety Endocrine/Metabolic History: Reports: None Dermatologic History: Reports: None - Past Surgical History HEENT Surgical History: Reports: Other (See Below) Other HEENT Surgeries/Procedures: implanted teeth Male Surgical History: Reports: Vasectomy Neurological Surgical History: Reports: Lumbar Spine Musculoskeletal Surgical History: Reports: Knee Replacement, Other (See Below), ORIF, Shoulder Replacement (Right side), Shoulder Surgery Other Musculoskeletal Surgeries/Procedures:: back surgery Social & Family History - Family History Family Medical History: No Pertinent Family History Cardiac: Reports: Hypertension Endocrine/Metabolic: Reports: Diabetes, type II - Tobacco Use Tobacco Use Status *Q: Light Tobacco User Years of Tobacco use: 30 Packs/Tins Daily: 1 Used Tobacco, but Quit: No Second Hand Smoke Exposure: No - Caffeine Use Caffeine Use: Reports: Coffee Other Caffeine Use: 2-3 pots per day - Recreational Drug Use Recreational Drug Use: No - Living Situation & Occupation 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 Denies: Fever, Chills HEENT: Reports: Glasses Respiratory: Reports: Shortness of Breath (Reading only). Denies: Wheezing, Pleuritic Chest Pain, Cough, Sputum, Hemoptysis Cardiovascular: Reports: Blood Pressure Problem, Dyspnea on Exertion. Denies: Chest Pain, Claudication, Lightheadedness, Orthopnea Endocrine: Reports: Fatigue GI/Abdominal: Reports: Constipation : Reports: Frequency, Other Musculoskeletal: Reports: Neck Pain, Shoulder Pain, Back Pain (Known BPH. Nocturia x1-2.), Joint Pain Skin: Reports: No Symptoms (Knees and hips at times) Neurological: Reports: No Symptoms Psychiatric: Reports: No Symptoms Hematologic/Lymphatic: Reports: No Symptoms Immunologic: Reports: No Symptoms ED EXAM, GENERAL - Physical Exam Exam: See Below Exam Limited By: No Limitations General Appearance: Alert, WD/WN, No Apparent Distress, Other (Temperature is 36.0 degrees. Heart rate 65 and sinus respiratory 16 with O2 sats of 97% room air BP is 142/94) Eye Exam: Bilateral Eye: Normal Inspection, PERRL Ears: Other (He has a myringotomy tube sitting sideways in his right ear canal. The myringotomy tube in the left tympanic membrane appears to be still functioning.) Nose: Nasal Swelling (He does have a deviated nasal septum to towards the right. There is swelling of the turbinates both middle and superior on the right), Clear Rhinorrhea ( narrowing his nasal passages significantly.), Other Throat/Mouth: Normal Inspection, Normal Lips, Normal Teeth, Normal Oropharynx, Other (He appears to have ) Head: Atraumatic, Normocephalic Neck: Normal Inspection, Supple, Non-Tender, Full Range of Motion. No: Carotid Bruit, Lymphadenopathy (L), Lymphadenopathy (R) Respiratory/Chest: No Respiratory Distress, Lungs Clear, Normal Breath Sounds, No Accessory Muscle Use. No: Rales, Rhonchi, Wheezing Cardiovascular: Normal Peripheral Pulses, Regular Rate, Rhythm, No Edema, No Gallop, No Murmur, No Rub Peripheral Pulses: 2+: Carotid (L), Carotid (R), Posterior Tibial (L), Posterior Tibial (R), Dorsalis Pedis (L), Dorsalis Pedis (R) GI/Abdominal: Normal Bowel Sounds, Soft, Non-Tender, No Organomegaly, No Mass, Pelvis Stable Back Exam: Other (Evidence of previous). No: CVA Tenderness (L) ( lumbar spine surgery.), CVA Tenderness (R) Extremities: Pedal Edema (1+ pitting edema left lower extremity 3+ on the right.) Neurological: Alert, Oriented, CN II-XII Intact, Normal Cognition Psychiatric: Normal Affect, Normal Mood Skin Exam: Warm, Dry, Intact, Normal Color, No Rash #1 Interpretation EKG Date: 12/07/20 Time: 02:12 Rhythm: Other (Sinus bradycardia) Rate (Beats/Min): 55 [place]: Normal P-Wave: Enlarged (Left atrial hypertrophy) QRS: Other (Nonspecific intraventricular conduction delay--incomplete right bundle branch block) ST-T: Other (Nonspecific T wave flattening aVL) QT: Normal EKG Interpretation Comments: Borderline ECG Course - Vital Signs Last Recorded V/S: Last Vital Signs Temp 36.9 C 12/07/20 03:55 Pulse 64 12/07/20 03:55 Resp 14 12/07/20 03:55 BP 138/88 12/07/20 03:55 Pulse Ox 100 12/07/20 03:55 - Orders/Labs/Meds Orders: Active Orders 24 hr Category Date Time Status Chest 1V Frontal [CR] Stat Exams 12/07/20 01:26 Taken Peripheral IV Insertion Adult [OM.PC] Stat Oth 12/07/20 01:29 Ordered Labs: Laboratory Tests 12/07/20 12/07/20 12/07/20 Range/Units 01:47 01:47 01:47 WBC 9.42 H (4.23-9.07) K/mm3 RBC 4.55 L (4.63-6.08) M/mm3 Hgb 14.7 (13.7-17.5) gm/dl Hct 42.7 (40.1-51.0) % MCV 93.8 H (79.0-92.2) fl MCH 32.3 H (25.7-32.2) pg MCHC 34.4 (32.2-35.5) g/dl RDW Std Deviation 42.9 (35.1-43.9) fL Plt Count 299 (163-337) K/mm3 MPV 10.7 (9.4-12.3) fl Neut % (Auto) 78.2 H (34.0-67.9) % Lymph % (Auto) 17.6 L (21.8-53.1) % [place] % (Auto) 3.8 L (5.3-12.2) % Eos % (Auto) 0.1 L (0.8-7.0) Baso % (Auto) 0.2 (0.1-1.2) % Neut # (Auto) 7.36 H (1.78-5.38) K/mm3 Lymph # (Auto) 1.66 (1.32-3.57) K/mm3 [place] # (Auto) 0.36 (0.30-0.82) K/mm3 Eos # (Auto) 0.01 L (0.04-0.54) K/mm3 Baso # (Auto) 0.02 (0.01-0.08) K/mm3 PT 10.5 (9.7-12.0) SECONDS INR 0.98 APTT 27.9 (21.7-31.4) SECONDS D-Dimer, Quantitative (0.19-0.50) mg/L Sodium 141 (136-145) mEq/L Potassium 4.5 (3.5-5.1) mEq/L Chloride 105 (98-107) mEq/L Carbon Dioxide 23 (21-32) mEq/L Anion Gap 17.5 H (5-15) BUN 12 (7-18) mg/dL Creatinine 1.0 (0.7-1.3) mg/dL Est Cr Clr Drug Dosing 91.61 mL/min Estimated GFR (MDRD) > 60 (>60) mL/min BUN/Creatinine Ratio 12.0 L (14-18) Glucose 151 H (70-99) mg/dL Calcium 8.7 (8.5-10.1) mg/dL Magnesium 2.1 (1.8-2.4) mg/dL Total Bilirubin 0.4 (0.2-1.0) mg/dL AST 23 (15-37) U/L ALT 54 (16-63) U/L Alkaline Phosphatase 89 (46-116) U/L Troponin I < 0.017 (0.00-0.056) ng/mL C-Reactive Protein <0.2 (<1.0) mg/dL NT-Pro-B Natriuret Pep (0-125) pg/mL Total Protein 7.3 (6.4-8.2) g/dl Albumin 3.9 (3.4-5.0) g/dl Globulin 3.4 gm/dL Albumin/Globulin Ratio 1.2 (1-2) 12/07/20 12/07/20 Range/Units 01:47 01:47 WBC (4.23-9.07) K/mm3 RBC (4.63-6.08) M/mm3 Hgb (13.7-17.5) gm/dl Hct (40.1-51.0) % MCV (79.0-92.2) fl MCH (25.7-32.2) pg MCHC (32.2-35.5) g/dl RDW Std Deviation (35.1-43.9) fL Plt Count (163-337) K/mm3 MPV (9.4-12.3) fl Neut % (Auto) (34.0-67.9) % Lymph % (Auto) (21.8-53.1) % [place] % (Auto) (5.3-12.2) % Eos % (Auto) (0.8-7.0) Baso % (Auto) (0.1-1.2) % Neut # (Auto) (1.78-5.38) K/mm3 Lymph # (Auto) (1.32-3.57) K/mm3 [place] # (Auto) (0.30-0.82) K/mm3 Eos # (Auto) (0.04-0.54) K/mm3 Baso # (Auto) (0.01-0.08) K/mm3 PT (9.7-12.0) SECONDS INR APTT (21.7-31.4) SECONDS D-Dimer, Quantitative < 0.19 L (0.19-0.50) mg/L Sodium (136-145) mEq/L Potassium (3.5-5.1) mEq/L Chloride (98-107) mEq/L Carbon Dioxide (21-32) mEq/L Anion Gap (5-15) BUN (7-18) mg/dL Creatinine (0.7-1.3) mg/dL Est Cr Clr Drug Dosing mL/min Estimated GFR (MDRD) (>60) mL/min BUN/Creatinine Ratio (14-18) Glucose (70-99) mg/dL Calcium (8.5-10.1) mg/dL Magnesium (1.8-2.4) mg/dL Total Bilirubin (0.2-1.0) mg/dL AST (15-37) U/L ALT (16-63) U/L Alkaline Phosphatase (46-116) U/L Troponin I (0.00-0.056) ng/mL C-Reactive Protein (<1.0) mg/dL NT-Pro-B Natriuret Pep 13 (0-125) pg/mL Total Protein (6.4-8.2) g/dl Albumin (3.4-5.0) g/dl Globulin gm/dL Albumin/Globulin Ratio (1-2) Meds: Medications Discontinued Medications Generic Name Dose Route Start Last Admin Trade Name Mic PRN Reason Stop Dose Admin Sodium Chloride 10 ml 12/07/20 01:28 12/07/20 04:20 Sodium Chloride 0.9% 10 Ml Syringe FLUSH 10 ml ASDIRECTED PRN Administration Keep Vein Open - Radiology Interpretation Free Text/Narrative:: 55-year-old male presents to the ED in the wee hours of the morning for evaluation of dyspnea on exertion which has been gradually getting worse. He could be labeled as a angina equivalent as he can walk only half across his [place] before he has to stop to get his breath. No associated central chest pain. Patient is a smoker and has been cutting back. Strong family history of coronary disease having had a younger brother at age 46 from an myocardial infarction in father at age 52. Both were smokers. Clinically has chronic sinus disease with postnasal drip. He has had myringotomy tubes placed x3 bilaterally. Current myringotomy tube in the right side is lying sideways in the ear canal adjacent to the drum. Both drums appear to be within normal limits at this time. He does have a deviated nasal septum towards the right side with evidence of middle and superior turbinate hypertrophy bilaterally. He has had a previous [place] uvuloplasty and tonsillectomy. Oropharynx was normal. Lungs were clear to auscultation percussion. He does have some dependent edema 3+ on the right and 1+ on the left. He believes this has been gradually getting worse in spite of taking a diuretic daily. Plan he will have a chest x- ray and ECG performed routine labs to be done. He had a work-up at [facility] in [place] yesterday which included a COVID-19 test which was negative. - Re-Assessments/Exams Free Text/Narrative Re-Assessment/Exam: 12/07/20 02:10: Portable chest x-ray reveals minimally hyperinflated lung schmidt. Cardiac silhouette is normal and lungs are rare with no pulmonary infiltrates. Mediastinum is normal as well. He does have evidence of a right shoulder prosthesis 12/07/20 02:50 White count is 9.42 with a differential of 78.2% neutrophils on the auto differential. Hemoglobin is 14.7 with hematocrit of 42.7. Platelet count is 209,000. PT is 10.5 with an INR of 0.98 PTT is 27.9. D-dimer was less than 0.0.019 .Sodium 141 with a potassium of 4.5. Chloride is 105 with a bicarb of 23. Anion gap is 17.5. BUN is 12 with a creatinine of 1.0 and a GFR greater than 60. BUN/creatinine ratio is 12.0 glucose is 151. Calcium is 8.7. Magnesium is 2.1. Liver function is normal troponin I is less than 0.017 C- reactive protein less than 0.2 total protein is 7.3 with an albumin fraction of 3.9 12/07/20 03:05 BNP is 13. Essentially all the investigations done through the emergency department are normal. 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 This would be interpreted as potential angina equivalent. He states he has noticed this gradually worsening over the last 6 to 8 weeks. I discussed the findings with the patient and the decision was made that I would forward his heart to Dr. Hewitt pool nurse at [facility] in [place] for him to forward the patient appointment time to discuss options and potential further investigations. Departure - Departure Time of Disposition: 03:37 Disposition: Home, Self-Care 01 Condition: Fair Clinical Impression: Anginal equivalent - Discharge Information *PRESCRIPTION DRUG MONITORING PROGRAM REVIEWED*: Not Applicable *COPY OF PRESCRIPTION DRUG MONITORING REPORT IN PATIENT MARE: Not Applicable Prescriptions: hydroCHLOROthiazide [Hydrochlorothiazide] 25 mg PO DAILY #30 tab Instructions: Angina, [id number] Referrals: PCP,None [Primary Care Provider] - Forms: ED Department Discharge Additional Instructions: Evaluation in the emergency room this morning was carried out due to you experiencing central chest discomfort and more less shortness of breath on exertion. You indicate that you can only walk intermediate across the farm yard before you have to stop to to catch your breath. We call this an angina equivalent. This means that if the heart is working harder on exertion and you start to feel short of breath or alternatively have central chest squeezing pain this can mean that the heart is not receiving appropriate blood supply due to blockage of the 3 arteries that supply the heart muscle with oxygen and nutrients. Evaluation in the emergency room tonight revealed a normal ECG and a normal chest x-ray and also completely normal labs with no sign of heart failure . You had a normal white count with no signs of an infective process. From your history I would suggest going back to see pool nurse at [facility] in [place] and I will send your chart to the clinic today and tentatively should you should hear back from them today or tomorrow with an appointment time. I suspect that you need an ECG stress test or alternatively if the heart doctor feels an angiogram is in order an angiogram should be done per their suggestion. In the meantime I will place you on diuretic or water pill called hydrochlorothiazide 25 mg once daily to help reduce the amount of fluid colle ction in your lower extremities. This is a diuretic that is weak but last throughout the 24 hours of day and will only make you void a bit more than usual when you do have to pass your water. Sepsis Event Note (ED) - Evaluation Sepsis Screening Result: No Definite Risk - Focused Exam Vital Signs: Vital Signs Temp Pulse Resp BP Pulse Ox 12/07/20 03:55 36.9 C 64 14 138/88 100 12/07/20 01:03 36.0 C L 65 16 142/94 H 97 - My Orders Last 24 Hours: My Active Orders 12/07/20 01:26 Chest 1V Frontal [CR] Stat 12/07/20 01:29 Peripheral IV Insertion Adult [OM.PC] Stat - Assessment/Plan Last 24 Hours: My Active Orders 12/07/20 01:26 Chest 1V Frontal [CR] Stat 12/07/20 01:29 Peripheral IV Insertion Adult [OM.PC] Stat
[2020-12-07 04:10] VITALS: BP 138/88; PULSE 64
[2020-12-07] MEDS: Sodium Chloride 0.9% 10 ML Syringe FLUSH PRN (04:20)
--- NOTE | 2020-12-07 06:47 | CR ---
Chest: Portable view of the chest was obtained. Comparison: Prior chest x-ray of 02/20/19. Slight atelectasis is seen within the left lung base. Lungs otherwise are clear. Heart size and mediastinum are normal. Right shoulder prosthesis is seen. No acute osseous finding is seen. Impression: 1. Mild left basilar atelectasis. 2. Nothing acute is seen. Diagnostic code #2
== END 2020-12-07 03:55 | disposition home or self-care (01) ==
LOC: JD.ED
DX: I20.8 Other forms of angina pectoris (principal); I10 Essential (primary) hypertension; K21.9 Gastro-esophageal reflux disease without esophagitis; J45.909 Unspecified asthma, uncomplicated; Z88.8 Allergy status to other drugs, medicaments and biological substances; Z79.899 Other long term (current) drug therapy; Z72.0 Tobacco use
CPT/HCPCS: 36415; 71045; 71045-26; 80053; 83735; 83880; 84484; 85025; 85379; 85610; 85730; 86140; 93005; 93010; 99284; 99285-25

== ENCOUNTER 2021-01-12 20:39 | Emergency (ER) | payer OTHER ==
[2021-01-12 20:55] VITALS: BP 160/92; PULSE 65
[2021-01-12] MEDS ORDERED: LORazepam 1 MG Tab PO ONE (21:11)
--- NOTE | 2021-01-12 21:14 | EDM.PDOCBH ---
ED HPI GENERAL MEDICAL PROBLEM - General Chief Complaint: Behavioral/Psych Stated Complaint: FEVER/BP UP AND DOWN Time Seen by Provider: 01/12/21 20:48 Source of Information: Reports: Patient History Limitations: Reports: No Limitations - History of Present Illness INITIAL COMMENTS - FREE TEXT/NARRATIVE: Mr. White is a very pleasant 55-year-old gentleman who now presents to the ED stating that he has been feeling anxious, including symptoms of shortness of breath and a sense that he is going to with known being there to help him, for the past 1.5 months, approximately. He states that 2 weeks ago he was seen by a Liquid Floor And Wall Applier who, according to the patient, thoroughly checked him out, and found no abnormalities. He also saw his PCP, who increased his Pristiq from 50 mg daily to 100 mg daily. He states that the increased dose of Pristiq has not helped his symptoms. It is not entirely clear what the patient was hoping we would do here in the ED, however, his is also here for another reason, and it is likely that he just wanted to be seen, since he is here anyway. Here in the ED, the patient's initial BP is found to be elevated at 160/92, otherwise, he is hemodynamically stable, afebrile, saturating 97% on room air. Other than his symptoms of anxiety apnea, and sense of impending doom, the patient denies having a recent fever, chills, sore throat, ear pain, nasal or sinus congestion, cough, chest pain, palpitations, nausea, vomiting, constipation, diarrhea, abdominal pain, urinary symptoms, recent weight gain or weight loss, recent bloody bowel movements or black bowel movements, recent joint aches, headaches, or rashes. The patient's PCP is at [facility]. He does not recall the name of his Liquid Floor And Wall Applier at [facility]. He does not recall the name of his Pharmaceutical Physician at [facility]. Headache Pain Score (Numeric/FACES): 8 - Related Data Allergies Allergy/AdvReac Type Severity Reaction Status Date / Time Kygxzby-Kcs-Wnl Reductase AdvReac Severe Disorientat Verified 01/12/21 20:55 Inhibitor ion Home Meds: Home Meds Desvenlafaxine Succinate [Pristiq] 50 mg PO DAILY 06/04/18 [History] Omeprazole Magnesium [Prilosec Otc] 20 mg PO DAILY 06/04/18 [History] Valsartan 30 mg PO DAILY 06/04/18 [History] Albuterol [Ventolin HFA] 1 puff INH Q4H PRN 08/05/18 [History] Tamsulosin [Flomax] 0.4 mg PO DAILY 08/05/18 [History] hydroCHLOROthiazide [Hydrochlorothiazide] 25 mg PO DAILY #30 tab 12/07/20 [Rx] Past Medical History HEENT History: Reports: Hard of Hearing (wears hearing aids), Impaired Vision (wears glasses) Cardiovascular History: Reports: CAD, Hypertension Respiratory History: Reports: Asthma Gastrointestinal History: Reports: GERD Genitourinary History: Reports: BPH Musculoskeletal History: Reports: Fracture (multiple), Osteoarthritis, RA (untreated) Psychiatric History: Reports: Anxiety, Depression Endocrine/Metabolic History: Reports: Obesity/BMI 30+ - Past Surgical History HEENT Surgical History: Reports: Myringotomy w Tube(s) (bilateral x 3), Naso- Sinus Surgery (rhinoplasty), Oral Surgery (dental implants) Cardiovascular Surgical History: Reports: Percutaneous Transluminal Angioplasty (x 1 2019) Male Surgical History: Reports: Vasectomy Neurological Surgical History: Reports: Lumbar Spine (microdiscectomy) Musculoskeletal Surgical History: Reports: Arthroscopic Knee (bilateral), ORIF (left ankle), Shoulder Replacement (right), Other (See Below) Social & Family History - Tobacco Use Tobacco Use Status *Q: Current Every Day Tobacco User Tobacco Use Within Last Twelve Months: Smokeless Tobacco (Chews 1/3 can/day) Years of Tobacco use: 43 Packs/Tins Daily: 0.5 Packs/Tins Daily Comment: Down from 1.5 ppd Tobacco Use Comment: Started smoking 1977 - Caffeine Use Caffeine Use: Reports: Coffee (2-3 pots per day) - Alcohol Use Alcohol Use History: Yes Alcohol Use Frequency: Rarely - Recreational Drug Use Recreational Drug Use: No - Living Situation & Occupation 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 ED EXAM, BEHAVIORAL HEALTH - Physical Exam Exam: See Below Exam Limited By: No Limitations General Appearance: Alert, WD/WN, No Apparent Distress Eye Exam: Bilateral Eye: EOMI, Normal Inspection Ears: Normal External Exam, Hearing Grossly Normal Nose: Normal Inspection Throat/Mouth: Normal Inspection, Normal Lips, Normal Voice, No Airway Compromise Head: Atraumatic, Normocephalic Neck: Normal Inspection, Full Range of Motion Respiratory/Chest: No Respiratory Distress, Lungs Clear, Normal Breath Sounds, No Accessory Muscle Use Cardiovascular: Normal Peripheral Pulses, Regular Rate, Rhythm, No Edema, No Gallop, No JVD, No Murmur, No Rub GI/Abdominal: Normal Bowel Sounds, Soft, Non-Tender, No Organomegaly, No Distention, No Abnormal Bruit, No Mass Back Exam: Normal Inspection, Full Range of Motion, NT Extremities: Normal Inspection, Normal Range of Motion, No Pedal Edema, Normal Capillary Refill Neurological: Alert, Normal Cognition, No Motor/Sensory Deficits, Oriented x 3 Psychiatric: Normal Affect Skin Exam: Warm, Dry, Intact, Normal color, No rash COURSE, BEHAVIORAL HEALTH COMP - Course Vital Signs: Last Vital Signs Temp 35.7 C L 01/12/21 20:50 Pulse 65 01/12/21 20:50 Resp 16 01/12/21 20:50 BP 160/92 H 01/12/21 20:50 Pulse Ox 97 01/12/21 20:50 Orders, Labs, Meds: Medications Discontinued Medications Generic Name Dose Route Start Last Admin Trade Name Raymundoq PRN Reason Stop Dose Admin Lorazepam 1 mg 01/12/21 21:11 01/12/21 21:20 Lorazepam 1 Mg Tab PO 01/12/21 21:12 1 mg ONETIME ONE Administration Medical Clearance: 01/12/21 21:12 The patient will be given a single dose of lorazepam 1 mg po here in the ED, but I am not going to prescribe any additional. I recommended that he follow-up with his PCP at [facility] to discuss other treatment options for anxiety. Departure - Departure Time of Disposition: 21:12 Disposition: Home, Self-Care 01 Condition: Good Clinical Impression: Anxiety - Discharge Information *PRESCRIPTION DRUG MONITORING PROGRAM REVIEWED*: Not Applicable *COPY OF PRESCRIPTION DRUG MONITORING REPORT IN PATIENT MARE: Not Applicable Instructions: Managing Anxiety, Adult Referrals: PCP,None [Primary Care Provider] - Forms: ED Department Discharge Additional Instructions: You were seen in the emergency room for 1.5 months of feeling anxious, including feeling shortness of breath and feeling like you were going to . You were treated with a single dose of the anti-anxiety medicine lorazepam (Ativan) in the ER, however, because of its potential for dependency, no additional prescription was provided. We recommend that you follow-up with your PCP at [facility] to discuss treatment options for anxiety. There are many. If any other problems, please do not hesitate to return to the ER. Sepsis Event Note (ED) - Evaluation Sepsis Screening Result: No Definite Risk - Focused Exam Vital Signs: Vital Signs Temp Pulse Resp BP Pulse Ox 01/12/21 20:50 35.7 C L 65 16 160/92 H 97
== END 2021-01-12 21:23 | disposition home or self-care (01) ==
LOC: JD.ED 20:39
DX: F41.9 Anxiety disorder, unspecified (principal); I25.10 Atherosclerotic heart disease of native coronary artery without angina pectoris; I10 Essential (primary) hypertension; K21.9 Gastro-esophageal reflux disease without esophagitis; E66.9 Obesity, unspecified; Z68.30 Body mass index [BMI] 30.0-30.9, adult; Z72.0 Tobacco use; Z88.8 Allergy status to other drugs, medicaments and biological substances
CPT/HCPCS: 99283; A9270

== ENCOUNTER 2021-04-04 19:33 | Emergency (ER) | payer OTHER ==
[2021-04-04] MEDS ORDERED: Aspirin 81 MG Tab.Chew PO ONE (19:47)
[2021-04-04 20:02] VITALS: PULSE 86
[2021-04-04] MEDS ORDERED: Nitroglycerin 0.3 MG Tab.SL SL PRN (20:41)
--- NOTE | 2021-04-04 21:21 | EDM.PDOC ---
ED HPI GENERAL MEDICAL PROBLEM - General Chief Complaint: Chest Pain Stated Complaint: CHEST PAIN/PAIN IN LEFT ARM Time Seen by Provider: 04/04/21 21:15 Source of Information: Reports: Patient History Limitations: Reports: No Limitations - History of Present Illness INITIAL COMMENTS - FREE TEXT/NARRATIVE: Patient is a 56-year-old male presented to the emergency room with a chief complaint of chest pain. Patient has a past medical history of hypertension and CAD. Patient states the chest pain started this afternoon. He reports chest tightness with radiation to the left arm. He also reports associated headache. He states for the past few weeks he has been feeling worse. He states he gets short of breath and sweaty when climbing up a flight of stairs. This does impr ove with rest. Prior to arrival tonight, he took several aspirin. Reports symptoms are somewhat better but not entirely gone. He states he is also concerned that his heart was racing earlier this evening but that seems to have also improved. He states he has had 2 cardiac catheterizations which shows some disease but has not had any stents placed. Treatments TUNNEL MINER: Reports: Other (see below) Other Treatments TUNNEL MINER: 2 babt aspirin Headache Pain Score (Numeric/FACES): 6 - Related Data Allergies Allergy/AdvReac Type Severity Reaction Status Date / Time Anpwait-BVB-EkW Reductase AdvReac Severe Disorientat Verified 01/12/21 20:55 Inhibitor ion [Yfnkxkw-Jzx-Zsf Reductase Inhibitor] Home Meds: Home Meds Desvenlafaxine Succinate [Pristiq] 50 mg PO DAILY 06/04/18 [History] Omeprazole Magnesium [Prilosec Otc] 20 mg PO DAILY 06/04/18 [History] Valsartan 30 mg PO DAILY 06/04/18 [History] Albuterol [Ventolin HFA] 1 puff INH Q4H PRN 08/05/18 [History] Tamsulosin [Flomax] 0.4 mg PO DAILY 08/05/18 [History] hydroCHLOROthiazide [Hydrochlorothiazide] 25 mg PO DAILY #30 tab 12/07/20 [Rx] Aspirin [Aspirin EC] 81 mg PO DAILY 04/04/21 [History] Nitroglycerin [Nitro-Dur 0.4 MG/Hr] 0.4 mg SL ASDIRECTED 04/04/21 [History] Rivaroxaban [Xarelto] 20 mg PO BEDTIME #10 tablet 04/05/21 [Rx] Past Medical History HEENT History: Reports: Hard of Hearing, Impaired Vision Other HEENT History: has hearing aids and glasses (doesn't always wear) Cardiovascular History: Reports: CAD, Hypertension Respiratory History: Reports: Asthma Other Respiratory History: Severe Snoring Gastrointestinal History: Reports: GERD Genitourinary History: Reports: BPH Musculoskeletal History: Reports: Fracture, Osteoarthritis, RA Other Musculoskeletal History: fracture hand - chronic neck pain Neurological History: Reports: None Psychiatric History: Reports: Anxiety, Depression Endocrine/Metabolic History: Reports: Obesity/BMI 30+ Dermatologic History: Reports: None - Infectious Disease History Infectious Disease History: Reports: None - Past Surgical History HEENT Surgical History: Reports: Myringotomy w Tube(s), Naso-Sinus Surgery, Oral Surgery Other HEENT Surgeries/Procedures: implanted teeth Cardiovascular Surgical History: Reports: Percutaneous Transluminal Angioplasty Male Surgical History: Reports: Vasectomy Neurological Surgical History: Reports: Lumbar Spine Musculoskeletal Surgical History: Reports: Arthroscopic Knee, ORIF, Shoulder Replacement, Other (See Below) Other Musculoskeletal Surgeries/Procedures:: back surgery Social & Family History - Family History Family Medical History: No Pertinent Family History Cardiac: Reports: Hypertension Endocrine/Metabolic: Reports: Diabetes, type II - Tobacco Use Tobacco Use Status *Q: Current Every Day Tobacco User Years of Tobacco use: 40 Packs/Tins Daily: 0.4 - Caffeine Use Caffeine Use: Reports: Coffee Other Caffeine Use: 2-3 pots per day - Recreational Drug Use Recreational Drug Use: No - Living Situation & Occupation 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.), 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: 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 ([employer]) ED ROS GENERAL - Review of Systems Review Of Systems: See Below Free Text/Narrative/Comment: In addition to that documented in the HPI above, the additional ROS was obtained: Constitutional: Denies fevers or chills Eyes: Denies vision changes ENMT: Denies sore throat CV: Per HPI Resp: Per HPI GI: Denies vomiting or diarrhea : Denies painful urination MSK: Denies recent trauma Skin: Denies new rashes Neuro: Denies new numbness or tingling or weakness Endocrine: Denies unexpected weight loss Heme: Denies bleeding disorders ED EXAM, GENERAL - Physical Exam Exam: See Below Free Text/Narrative:: I have reviewed the triage vital signs Const: Well nourished, well developed, appears stated age Eyes: Pupils Equal and reactive to light bilaterally, no conjunctival injection HENT: No signs of trauma or swelling, Neck supple without meningismus CV: Regular Rate Rhythm, Warm, well-perfused extremities RESP: Unlabored respiratory effort GI: soft, non-tender, non-distended, no masses MSK: No gross deformities appreciated. No lower extremity swelling or calf tenderness. Skin: Warm, dry. No rashes Neuro: Alert, ore miner II-XII grossly intact. Sensation and motor function of extremities grossly intact. Psych: Appropriate mood and affect. #1 Interpretation EKG Date: 04/04/21 Time: 19:56 Rhythm: NSR Rate (Beats/Min): 86 [place]: Normal P-Wave: Present QRS: Normal ST-T: Normal QT: Normal EKG Interpretation Comments: Normal EKG #2 Interpretation EKG Date: 04/04/21 Time: 23:08 Rhythm: NSR Rate (Beats/Min): 63 [place]: Normal P-Wave: Present QRS: Normal ST-T: Normal QT: Normal Comparison: No Change EKG Interpretation Comments: Normal EKG Course - Vital Signs Last Recorded V/S: Last Vital Signs Temp 37.3 C 04/04/21 20:00 Pulse 86 04/04/21 20:00 Resp 20 04/04/21 20:00 BP 110/63 04/04/21 23:18 Pulse Ox 97 04/04/21 20:00 - Orders/Labs/Meds Orders: Active Orders 24 hr Category Date Time Status Cardiac Monitoring [RC] . DIRECTED Care 04/04/21 19:47 Active Communication Order [RC] ASDIRECTED Care 04/04/21 19:47 Active Communication Order [RC] ASDIRECTED Care 04/04/21 19:47 Active Oxygen Therapy [RC] ASDIRECTED Care 04/04/21 19:47 Active Chest 1V Frontal [CR] Stat Exams 04/04/21 19:47 Taken Nitroglycerin [Nitrostat] Med 04/04/21 20:41 Active 0.3 mg SL Q5M PRN Medication Orders Nitroglycerin (Nitroglycerin 0.3 Mg Tab.Sl) 0.3 mg SL Q5M PRN PRN Reason: Chest Pain Last Admin: 04/04/21 23:04 Dose: 0.3 mg Documented by: GARRISON Labs: Laboratory Tests 04/04/21 04/04/21 04/04/21 Range/Units 19:55 19:55 19:55 WBC 13.84 H (4.23-9.07) K/mm3 RBC 4.68 (4.63-6.08) M/mm3 Hgb 15.2 (13.7-17.5) gm/dl Hct 44.2 (40.1-51.0) % MCV 94.4 H (79.0-92.2) fl MCH 32.5 H (25.7-32.2) pg MCHC 34.4 (32.2-35.5) g/dl RDW Std Deviation 43.2 (35.1-43.9) fL Plt Count 279 (163-337) K/mm3 MPV 10.9 (9.4-12.3) fl Neut % (Auto) 66.6 (34.0-67.9) % Lymph % (Auto) 23.5 (21.8-53.1) % Island % (Auto) 8.2 (5.3-12.2) % Eos % (Auto) 1.1 (0.8-7.0) Baso % (Auto) 0.3 (0.1-1.2) % Neut # (Auto) 9.23 H (1.78-5.38) K/mm3 Lymph # (Auto) 3.25 (1.32-3.57) K/mm3 Island # (Auto) 1.13 H (0.30-0.82) K/mm3 Eos # (Auto) 0.15 (0.04-0.54) K/mm3 Baso # (Auto) 0.04 (0.01-0.08) K/mm3 PT 10.4 (9.7-12.0) SECONDS INR 0.93 D-Dimer, Quantitative < 0.19 L (0.19-0.50) mg/L Sodium 141 (136-145) mEq/L Potassium 4.1 (3.5-5.1) mEq/L Chloride 102 (98-107) mEq/L Carbon Dioxide 28 (21-32) mEq/L Anion Gap 15.1 H (5-15) BUN 18 (7-18) mg/dL Creatinine 1.1 (0.7-1.3) mg/dL Est Cr Clr Drug Dosing 82.30 mL/min Estimated GFR (MDRD) > 60 (>60) mL/min BUN/Creatinine Ratio 16.4 (14-18) Glucose 134 H (70-99) mg/dL Calcium 9.0 (8.5-10.1) mg/dL Magnesium 2.0 (1.8-2.4) mg/dL Total Bilirubin 0.3 (0.2-1.0) mg/dL AST 23 (15-37) U/L ALT 47 (16-63) U/L Alkaline Phosphatase 84 (46-116) U/L Troponin I < 0.017 (0.00-0.056) ng/mL Total Protein 7.3 (6.4-8.2) g/dl Albumin 4.0 (3.4-5.0) g/dl Globulin 3.3 gm/dL Albumin/Globulin Ratio 1.2 (1-2) 04/04/21 Range/Units 23:15 WBC (4.23-9.07) K/mm3 RBC (4.63-6.08) M/mm3 Hgb (13.7-17.5) gm/dl Hct (40.1-51.0) % MCV (79.0-92.2) fl MCH (25.7-32.2) pg MCHC (32.2-35.5) g/dl RDW Std Deviation (35.1-43.9) fL Plt Count (163-337) K/mm3 MPV (9.4-12.3) fl Neut % (Auto) (34.0-67.9) % Lymph % (Auto) (21.8-53.1) % Island % (Auto) (5.3-12.2) % Eos % (Auto) (0.8-7.0) Baso % (Auto) (0.1-1.2) % Neut # (Auto) (1.78-5.38) K/mm3 Lymph # (Auto) (1.32-3.57) K/mm3 [place] # (Auto) (0.30-0.82) K/mm3 Eos # (Auto) (0.04-0.54) K/mm3 Baso # (Auto) (0.01-0.08) K/mm3 PT (9.7-12.0) SECONDS INR D-Dimer, Quantitative (0.19-0.50) mg/L Sodium (136-145) mEq/L Potassium (3.5-5.1) mEq/L Chloride (98-107) mEq/L Carbon Dioxide (21-32) mEq/L Anion Gap (5-15) BUN (7-18) mg/dL Creatinine (0.7-1.3) mg/dL Est Cr Clr Drug Dosing mL/min Estimated GFR (MDRD) (>60) mL/min BUN/Creatinine Ratio (14-18) Glucose (70-99) mg/dL Calcium (8.5-10.1) mg/dL Magnesium (1.8-2.4) mg/dL Total Bilirubin (0.2-1.0) mg/dL AST (15-37) U/L ALT (16-63) U/L Alkaline Phosphatase (46-116) U/L Troponin I < 0.017 (0.00-0.056) ng/mL Total Protein (6.4-8.2) g/dl Albumin (3.4-5.0) g/dl Globulin gm/dL Albumin/Globulin Ratio (1-2) Meds: Medications Generic Name Dose Route Start Last Admin Trade Name Mic PRN Reason Stop Dose Admin Nitroglycerin 0.3 mg 04/04/21 20:41 04/04/21 23:04 Nitroglycerin 0.3 Mg Tab.Sl SL 0.3 mg Q5M PRN Administration Chest Pain Discontinued Medications Generic Name Dose Route Start Last Admin Trade Name Mic PRN Reason Stop Dose Admin Aspirin 324 mg 04/04/21 19:47 04/04/21 21:15 Aspirin 81 Mg Tab.Chew PO 04/04/21 19:48 324 mg ONETIME ONE Administration Morphine Sulfate 4 mg 04/05/21 02:38 Morphine 4 Mg/Ml Syringe IVPUSH 04/05/21 02:39 ONETIME ONE Rivaroxaban 20 mg 04/05/21 02:52 Rivaroxaban 10 Mg Tab PO 04/05/21 02:53 ONETIME ONE Departure - Departure Time of Disposition: 03:28 Disposition: Home, Self-Care 01 Clinical Impression: Atrial fibrillation Prescriptions: Rivaroxaban [Xarelto] 20 mg PO BEDTIME #10 tablet Instructions: Nonspecific Chest Pain, Adult, [id number], Atrial Fibrillation Referrals: PCP,None [Primary Care Provider] - Forms: ED Department Discharge Additional Instructions: Please set up an appointment with us the cardio electrophysiology group at [facility]. Their phone number is [phone]. Return to the emergency room for feeling dizzy, sustained chest pain or palpitations or any other emergent concerns. Sepsis Event Note (ED) - Focused Exam Vital Signs: Vital Signs Temp Pulse Resp BP BP BP Pulse Ox 04/04/21 23:18 110/63 04/04/21 23:04 120/96 H 04/04/21 20:00 37.3 C 86 20 155/110 H 155/100 H 97 - My Orders Last 24 Hours: My Active Orders 04/04/21 19:47 Cardiac Monitoring [RC] . DIRECTED Communication Order [RC] ASDIRECTED Communication Order [RC] ASDIRECTED Oxygen Therapy [RC] ASDIRECTED Chest 1V Frontal [CR] Stat 04/04/21 20:41 Nitroglycerin [Nitrostat] 0.3 mg SL Q5M PRN - Assessment/Plan Last 24 Hours: My Active Orders 04/04/21 19:47 Cardiac Monitoring [RC] . DIRECTED Communication Order [RC] ASDIRECTED Communication Order [RC] ASDIRECTED Oxygen Therapy [RC] ASDIRECTED Chest 1V Frontal [CR] Stat 04/04/21 20:41 Nitroglycerin [Nitrostat] 0.3 mg SL Q5M PRN Assessment:: Patient is a 56-year-old male presented to the emergency room with chest pain palpitations. Unremarkable ER course. Vital signs demonstrated slight hypertension on arrival. Patient did become bradycardic with a rate in the 50s. Serial EKGs demonstrated normal sinus rhythm without ischemic changes. While in the emergency room, he did have a brief episode of atrial fibrillation which was captured on rhythm strip. No evidence of ventricular arrhythmias. Laboratory testing reviewed without significant abnormalities. Serial troponin testing negative. Differential diagnosis considered for this patient include ACS, PE, pneumonia, pneumothorax. D-dimer negative and therefore PE has been ruled out. At this point, patient is a [id number] score of 2 and does require therapeutic anticoagulation for atrial fibrillation. I did discuss this case with cardiology at [facility] in [place] and they recommended follow-up with their electrophysiology lab so we can receive the appropriate treatment for A. fib since he cannot be given metoprolol with sinus bradycardia. At this point, patient is agreement with this plan will be discharged from the emergency room.
[2021-04-04 23:18] VITALS: BP 110/63
[2021-04-05] MEDS ORDERED: Morphine 4 MG/ML Syringe IVPUSH ONE (02:38)
[2021-04-05] MEDS ORDERED: Rivaroxaban 10 MG Tab PO ONE (02:52)
--- NOTE | 2021-04-05 12:03 | CR ---
Chest: Portable view of the chest was obtained. Comparison: Prior chest x-ray of 12/07/20. Slight scarring is seen within the left base. Lungs otherwise are clear. Heart size and mediastinum are normal. Right shoulder prosthesis is noted. Impression: 1. Slight left basilar scarring. 2. Nothing acute is seen on portable chest x-ray. Diagnostic code #2
== END 2021-04-05 03:45 | disposition home or self-care (01) ==
LOC: JD.ED 19:33 → SUPCPDRO 19:33 → JD.ED 04-05 03:45
DX: I48.91 Unspecified atrial fibrillation (principal); I25.10 Atherosclerotic heart disease of native coronary artery without angina pectoris; I10 Essential (primary) hypertension; K21.9 Gastro-esophageal reflux disease without esophagitis; E66.9 Obesity, unspecified; Z68.33 Body mass index [BMI] 33.0-33.9, adult; Z72.0 Tobacco use; Z79.82 Long term (current) use of aspirin; Z79.899 Other long term (current) drug therapy
CPT/HCPCS: 36415; 71045; 80053; 83735; 84484; 85025; 85379; 85610; 93005; 99285; A9270; 93010

== ENCOUNTER 2021-08-12 11:21 | Inpatient (IN) | payer BC, OTHER ==
[2021-08-12] MEDS ORDERED: Sodium Chloride 0.9% 1,000 ML IV ONE ×2 (12:54→21:41)
[2021-08-12] MEDS ORDERED: Piperacillin/Tazobactam 4.5 GM in Sodium Chloride 0.9% 100 ML IV ONE (12:54)
[2021-08-12] MEDS ORDERED: Ondansetron 4 MG/2 ML SDV IVPUSH ONE (12:54)
[2021-08-12] MEDS ORDERED: fentaNYL 100 MCG/2 ML SDV IVPUSH ONE ×2 (12:54→14:52)
[2021-08-12] MEDS ORDERED: HYDROmorphone 1 MG/ML Syringe IVPUSH ONE ×3 (17:35→21:07)
[2021-08-12] MEDS ORDERED: HYDROmorphone 0.5 MG/0.5 ML Syringe IVPUSH ONE (20:13)
[2021-08-12] MEDS ORDERED: Sodium Chloride 0.9% 1,000 ML IV SCH ×2 (20:15→21:15)
[2021-08-12] MEDS ORDERED: Sodium Chloride 0.9% 1,000 ML ONE (21:13)
[2021-08-12] MEDS ORDERED: Albuterol/Ipratropium 3.0-0.5 MG/3 ML Neb Soln NEB PRN (21:16)
[2021-08-12] MEDS ORDERED: hydrALAZINE 20 MG/ML SDV IVPUSH PRN (21:17)
[2021-08-12] MEDS: Piperacillin/Tazobactam 4.5 GM in Sodium Chloride 0.9% 100 ML IV SCH (21:33)
[2021-08-12] MEDS ORDERED: Nicotine 14 MG/24 Hr Patch TRDERM ONE (21:41)
[2021-08-12] MEDS ORDERED: Ondansetron 4 MG/2 ML SDV IVPUSH PRN (23:55)
[2021-08-13] MEDS: HYDROmorphone 0.5 MG/0.5 ML Syringe IVPUSH PRN ×6 (00:39→21:29)
[2021-08-13] MEDS: Piperacillin/Tazobactam 4.5 GM in Sodium Chloride 0.9% 100 ML IV SCH ×3 (06:25→21:29)
[2021-08-13] MEDS ORDERED: Pantoprazole 40 MG in Sodium Chloride 0.9% 100 ML IV SCH (07:30)
[2021-08-13] MEDS: Nicotine 14 MG/24 Hr Patch TRDERM SCH (07:59)
[2021-08-13] MEDS ORDERED: Acetaminophen 325 MG Tab PO ONE (08:02)
[2021-08-13] MEDS: Tamsulosin 0.4 MG Cap.ER PO SCH (08:20)
[2021-08-13] MEDS: Sennosides 8.6 MG Tab PO SCH (08:20)
[2021-08-13] MEDS: Aspirin 81 MG Tab.EC PO SCH (08:21)
[2021-08-13] MEDS: Docusate Sodium 100 MG Cap PO SCH ×2 (08:21→21:29)
[2021-08-13] MEDS: Losartan 50 MG Tab PO SCH (08:21)
[2021-08-13] MEDS: Desvenlafaxine Succinate [Pristiq] 25 MG Tab.Er.24h PO SCH (08:53)
[2021-08-13] MEDS: Heparin Sodium 5,000 Units/ML Vial SUBCUT SCH ×2 (09:55→17:52)
[2021-08-13] MEDS: oxyCODONE 5 MG Tab PO PRN (16:13)
[2021-08-13] MEDS ORDERED: Rivaroxaban 10 MG Tab PO SCH (21:00)
[2021-08-14] MEDS: Heparin Sodium 5,000 Units/ML Vial SUBCUT SCH ×2 (01:39→08:36)
[2021-08-14] MEDS: oxyCODONE 5 MG Tab PO PRN (01:39)
[2021-08-14] MEDS: Pantoprazole 40 MG Vial IV SCH ×2 (06:02→07:04)
[2021-08-14] MEDS: Piperacillin/Tazobactam 4.5 GM in Sodium Chloride 0.9% 100 ML IV SCH ×2 (06:02→12:30)
[2021-08-14] MEDS: Tamsulosin 0.4 MG Cap.ER PO SCH (08:36)
[2021-08-14] MEDS: Aspirin 81 MG Tab.EC PO SCH (08:36)
[2021-08-14] MEDS: Nicotine 14 MG/24 Hr Patch TRDERM SCH (08:37)
[2021-08-14] MEDS: Losartan 50 MG Tab PO SCH (08:37)
[2021-08-14] MEDS: Desvenlafaxine Succinate [Pristiq] 25 MG Tab.Er.24h PO SCH (08:38)
[2021-08-14] MEDS: Docusate Sodium 100 MG Cap PO SCH (08:40)
[2021-08-14] MEDS: Sennosides 8.6 MG Tab PO SCH (08:40)
[2021-08-14 16:46] VITALS: BP 127/70; PULSE 52
== END 2021-08-14 16:40 | disposition home or self-care (01) | DRG 244 ==
LOC: JD.ED 11:21 → JD.MS 19:52
PROVIDERS: ADMIT Hospitalist; ATTEND Hospitalist
DX: K57.32 Diverticulitis of large intestine without perforation or abscess without bleeding (principal); I10 Essential (primary) hypertension; K21.9 Gastro-esophageal reflux disease without esophagitis; J45.909 Unspecified asthma, uncomplicated; F41.9 Anxiety disorder, unspecified; M19.90 Unspecified osteoarthritis, unspecified site; M54.9 Dorsalgia, unspecified; G89.29 Other chronic pain; Z66 Do not resuscitate; M81.0 Age-related osteoporosis without current pathological fracture; M06.9 Rheumatoid arthritis, unspecified; H91.90 Unspecified hearing loss, unspecified ear; E78.00 Pure hypercholesterolemia, unspecified; F32.A Depression, unspecified; E66.9 Obesity, unspecified; M54.2 Cervicalgia; Z96.619 Presence of unspecified artificial shoulder joint; F17.200 Nicotine dependence, unspecified, uncomplicated; Z86.16 Personal history of COVID-19; Z91.14 Patient's other noncompliance with medication regimen; Z88.8 Allergy status to other drugs, medicaments and biological substances; Z79.82 Long term (current) use of aspirin; Z79.899 Other long term (current) drug therapy; Z68.22 Body mass index [BMI] 22.0-22.9, adult
CPT/HCPCS: 36415; 74177; 74177-26; 80048; 83605; 83690; 85007; 85025; 85027; 85610; 86850; 86900; 86901; 87040; 96365; 96375; 96376; 99284-25; A9270-GY; C9113; J1170; J1644; J2405; J2543; J3010; J7030

== ENCOUNTER 2021-09-13 08:46 | Emergency (ER) | payer BC ==
[2021-09-13] MEDS ORDERED: HYDROmorphone 1 MG/ML Syringe IM ONE (09:13)
[2021-09-13 10:41] VITALS: PULSE 55
[2021-09-13 10:42] VITALS: BP 143/88
== END 2021-09-13 10:36 | disposition home or self-care (01) ==
LOC: JD.ED 08:46
DX: M25.512 Pain in left shoulder (principal); I25.10 Atherosclerotic heart disease of native coronary artery without angina pectoris; E78.00 Pure hypercholesterolemia, unspecified; I10 Essential (primary) hypertension; K21.9 Gastro-esophageal reflux disease without esophagitis; J44.9 Chronic obstructive pulmonary disease, unspecified; N40.0 Benign prostatic hyperplasia without lower urinary tract symptoms; F17.210 Nicotine dependence, cigarettes, uncomplicated; E66.9 Obesity, unspecified; Z68.29 Body mass index [BMI] 29.0-29.9, adult; Z88.8 Allergy status to other drugs, medicaments and biological substances; Z79.899 Other long term (current) drug therapy; Z79.82 Long term (current) use of aspirin; Z79.01 Long term (current) use of anticoagulants
CPT/HCPCS: 73030; 96372; 99283; J1170; 99284

== ENCOUNTER → 2021-12-07 | Day surgery (SDC) | payer BC ==
[~2021-12-07] MED LIST: Acetaminophen 325 MG Tab PO SCH; Cyclobenzaprine 10 MG Tab PO SCH; EPINEPHrine 1 MG/ML SDV ONE; HYDROmorphone 0.5 MG/0.5 ML Syringe IVPUSH SCH; Lactated Ringers 1,000 ML IV SCH; Lidocaine 1% 2 ML ONE; Lidocaine 1%/Sod Bicarbonate in NS 8.4% 1 ML Syringe IDERM PRN; Midazolam 1 MG/ML 2 ML SDV IVPUSH ONE; Midazolam 1 MG/ML 2 ML SDV ONE; Ondansetron 4 MG/2 ML SDV IVPUSH PRN; Ondansetron 4 MG/2 ML SDV ONE; Phenylephrine HCl In 0.9% NaCl 1 MG/10 ML Vial ONE; Pregabalin 25 MG Cap PO SCH; Propofol 200 MG/20 ML SDV ONE; Rocuronium 50 MG/5 ML Vial ONE; Ropivacaine 0.5% 5 MG/ML 30 ML SDV ONE; Scopolamine 1.5 MG Transdermal Patch TOP ONE; Sodium Chloride 0.9% 10 ML Syringe FLUSH PRN; Sodium Chloride 0.9% 10 ML Syringe FLUSH SCH; Sugammadex Sodium 200 MG/2 ML VIAL ONE; Vancomycin 1 GM SDV ONE; ceFAZolin 2 GM Vial ONE; ePHEDrine 50 MG/ML SDV ONE; fentaNYL 250 MCG/5 ML SDV ONE; oxyCODONE 5 MG Tab PO SCH; oxyCODONE ER 10 MG TAB.ER PO SCH
[2021-12-07] MEDS: fentaNYL 100 MCG/2 ML SDV IVPUSH PRN ×3 (10:31→11:39)
[2021-12-07] MEDS: HYDROmorphone 0.5 MG/0.5 ML Syringe IVPUSH PRN ×2 (10:39→10:57)
[2021-12-07 13:14] VITALS: BP 136/79; PULSE 96
== END | disposition home or self-care (01) ==
LOC: JD.SDS 07:41 → EDSTATUS 10:00
PROVIDERS: ATTEND Orthopaedic Surgery
DX: M19.012 Primary osteoarthritis, left shoulder (principal); F41.9 Anxiety disorder, unspecified; K21.9 Gastro-esophageal reflux disease without esophagitis; I10 Essential (primary) hypertension; M06.9 Rheumatoid arthritis, unspecified; F32.A Depression, unspecified; I25.10 Atherosclerotic heart disease of native coronary artery without angina pectoris; F17.210 Nicotine dependence, cigarettes, uncomplicated; E66.9 Obesity, unspecified; E78.2 Mixed hyperlipidemia; J44.9 Chronic obstructive pulmonary disease, unspecified; Z98.890 Other specified postprocedural states; Z86.16 Personal history of COVID-19; Z88.8 Allergy status to other drugs, medicaments and biological substances; Z68.29 Body mass index [BMI] 29.0-29.9, adult
CPT/HCPCS: 23472; 73020; 76000; 97166; 97535; A9270; C1713; C1769; C1776; J0171; J0690; J1170; J2250; J2405; J2704; J2795; J3010; J3370; J3490; J7120; 01638; 64415; 76942

== ENCOUNTER 2023-04-22 15:38 | Emergency (ER) | payer BC ==
[2023-04-22] MEDS ORDERED: Ketorolac 60 MG/2 ML SDV IM ONE (16:28)
[2023-04-22 17:16] VITALS: BP 147/65; PULSE 98
== END 2023-04-22 17:12 | disposition home or self-care (01) ==
LOC: JD.ED 15:38
DX: M19.012 Primary osteoarthritis, left shoulder (principal); I10 Essential (primary) hypertension; I25.10 Atherosclerotic heart disease of native coronary artery without angina pectoris; E78.00 Pure hypercholesterolemia, unspecified; J44.9 Chronic obstructive pulmonary disease, unspecified; K21.9 Gastro-esophageal reflux disease without esophagitis; E66.9 Obesity, unspecified; Z68.29 Body mass index [BMI] 29.0-29.9, adult; Z88.8 Allergy status to other drugs, medicaments and biological substances; Z79.899 Other long term (current) drug therapy; Z79.82 Long term (current) use of aspirin
CPT/HCPCS: 73030; 96372; 99284; J1885; 99283

== ENCOUNTER 2023-08-25 17:26 | Emergency (ER) | payer BC ==
[2023-08-25] MEDS: Acetaminophen/oxyCODONE 325-5 MG Tab PO ONE (19:42)
[2023-08-25 21:23] VITALS: BP 135/85; PULSE 88
== END 2023-08-25 21:24 | disposition home or self-care (01) ==
LOC: JD.ED 17:26
DX: S93.401A Sprain of unspecified ligament of right ankle, initial encounter (principal); S70.02XA Contusion of left hip, initial encounter; I10 Essential (primary) hypertension; I25.10 Atherosclerotic heart disease of native coronary artery without angina pectoris; J45.909 Unspecified asthma, uncomplicated; K21.9 Gastro-esophageal reflux disease without esophagitis; M19.90 Unspecified osteoarthritis, unspecified site; E78.00 Pure hypercholesterolemia, unspecified; E66.9 Obesity, unspecified; F17.210 Nicotine dependence, cigarettes, uncomplicated; Z88.8 Allergy status to other drugs, medicaments and biological substances; Z79.82 Long term (current) use of aspirin; Z79.899 Other long term (current) drug therapy; Z68.29 Body mass index [BMI] 29.0-29.9, adult; X50.1XXA Overexertion from prolonged static or awkward postures, initial encounter
CPT/HCPCS: 73502; 73610; 99283; A9270

== ENCOUNTER 2024-05-25 11:00 | Emergency (ER) | payer BC ==
[2024-05-25 11:49] LABS: BASOPHILS PERCENT AUTO 0.2 % (0.0-1.0); EOSINOPHILS ABSOLUTE AUTO 0.1 K/mm3 (0.0-0.4); HEMATOCRIT 46.8 % (42.0-52.0); HEMOGLOBIN 16.5 gm/dl (14.0-18.0); IMMATURE GRAN ABSOLUTE AUTO 0.04 K/mm3 (0.00-0.05); IMMATURE GRAN PERCENT AUTO 0.4 % (0.0-0.4); LYMPHOCYTES ABSOLUTE AUTO 2.5 K/mm3 (1.0-4.8); LYMPHOCYTES PERCENT AUTO 26.1 % (24.0-44.0); MEAN CORPUSCULAR HGB CONC 35.3 g/dl (32.0-36.0); MEAN CORPUSCULAR VOLUME 90.7 fl (83.0-99.0); MEAN PLATELET VOLUME 10.5 fl (9.4-12.4); MONOCYTES ABSOLUTE AUTO 0.8 K/mm3 (0.0-0.8); MONOCYTES PERCENT AUTO 8.8 % (0.0-8.0); NEUTROPHILS ABSOLUTE AUTO 6.1 K/mm3 (1.8-7.7); NEUTROPHILS PERCENT AUTO 63.5 % (41.0-71.0); PLATELET COUNT,PLT 390 K/mm3 (150-400); RED BLOOD CELL COUNT 5.16 M/mm3 (4.52-5.90); WHITE BLOOD CELL COUNT,WBC 9.55 K/mm3 (3.9-11.3)
[2024-05-25] MEDS: Albuterol/Ipratropium 3.0-0.5 MG/3 ML Neb Soln NEB ONE (12:04)
[2024-05-25 12:16] LABS: ALANINE AMINOTRANSFERASE,ALT 58 U/L (16-63); ALBUMIN 3.5 g/dl (3.4-5.0); ALKALINE PHOSPHATASE 114 U/L (46-116); ANION GAP 11.9 (5-15); ASPARTATE AMNIOTRANSFERASE,AST 27 U/L (15-37); BILIRUBIN TOTAL 0.7 mg/dL (0.2-1.0); BLOOD UREA NITROGEN,BUN 17 mg/dL (7-18); BUN/CREATININE RATIO 15.5 (14-18); CARBON DIOXIDE,CO2 28 mEq/L (21-32); CHLORIDE,CL 103 mEq/L (98-107); CREATININE 1.1 mg/dL (0.7-1.3); ESTIMATED GFR 77 mL/min (>60); GLUCOSE RANDOM 111 mg/dL (70-99); POTASSIUM,K 3.9 mEq/L (3.5-5.1); PROTEIN TOTAL,TP 7.2 g/dl (6.4-8.2); SODIUM,NA 139 mEq/L (136-145)
[2024-05-25] MEDS: Lactated Ringers 1,000 ML IV ONE (12:29)
[2024-05-25 12:37] LABS: TROPONIN I HIGH SENSITIVITY < 4 pg/mL (<=76)
[2024-05-25] MEDS: predniSONE 20 MG Tab PO ONE (14:51)
[2024-05-25] MEDS: Benzonatate 100 MG Cap PO ONE (14:51)
[2024-05-25] MEDS: Metoclopramide 10 MG/2 ML SDV IVPUSH ONE (15:00)
[2024-05-25 15:03] VITALS: BP 126/86; PULSE 67
== END 2024-05-25 15:04 | disposition home or self-care (01) ==
LOC: JD.ED 11:00
DX: R42 Dizziness and giddiness (principal); R05.1 Acute cough; I10 Essential (primary) hypertension; E78.00 Pure hypercholesterolemia, unspecified; I25.10 Atherosclerotic heart disease of native coronary artery without angina pectoris; J44.9 Chronic obstructive pulmonary disease, unspecified; K21.9 Gastro-esophageal reflux disease without esophagitis; Z88.6 Allergy status to analgesic agent; Z79.899 Other long term (current) drug therapy; Z79.51 Long term (current) use of inhaled steroids; Z79.82 Long term (current) use of aspirin
CPT/HCPCS: 36415; 71045; 80053; 84484; 85025; 87428; 93005; 94640; 96360; 99285; A9270; J7120; J7512; 93010; 99284; J7620-GY